=== PATIENT | male | born 1940 | race African-American/Black ===

== ENCOUNTER 2017-10-22 13:53 | Inpatient (IN) | payer MEDICARE ==
[~2017-10-22 13:53] MED LIST: Heparin 1,000 UNITS/ML VIAL ONE
--- NOTE | 2017-10-22 14:45 | RAD ---
RIGHT HIP TWO VIEWS: HISTORY: A 77-year-old male with a history of right hip pain following an injury from trauma. FINDINGS: Very markedly comminuted intertrochanteric and subtrochanteric fracture of the right hip with foresho rtening and some varus deformity. IMPRESSION: Markedly comminuted intertrochanteric and subtrochanteric fracture of the right femur with foreshorte jeancarlos and varus deformity. POS: OFF
--- NOTE | 2017-10-22 14:46 | RAD ---
AP PELVIS ONE VIEW: HISTORY: A 77-year-old male with a history of right hip pain following an injury from trauma. FINDINGS: Comminuted intertrochanteric and subtrochanteric right femoral fracture with foreshortening. Bone de mineralization. Bilateral hip joint arthrosis. Prominent arteriovascular calcifications. IMPRESSION: Comminuted proximal femoral fracture. POS: OFF
--- NOTE | 2017-10-22 14:51 | RAD ---
CHEST ONE VIEW: HISTORY: A 77-year-old male for preoperative evaluation for right hip fracture repair. FINDINGS: Irregular linear and interstitial parenchymal changes in the inferolateral lungs bilaterally, having a chronic appearance. Heart size is within normal limits. Atherosclerosis of the aorta. No conflue nt pneumonia, overt edema, or pleural effusion. IMPRESSION: 1. Bilateral linear and interstitial parenchymal changes in the inferolateral aspect of both lungs, having more of a chronic appearance. 2. Minimal asymmetric acute interstitial pneumonitis could have a similar appearance, but this is fa vored to be chronic. POS: OFF
[2017-10-22 15:00] LABS: #Eosinphils 0.1 thou/uL (0.0-0.7); #Lymphocytes 0.7 thou/uL (1.20-3.40); #Monocytes 0.4 thou/uL (0.11-0.59); #Neutrophils 5.7 thou/uL (1.40-6.50); %Basophils 0.1 % (0.0-1.0); %Eosinophils 1.5 % (0.0-10.0); %Lymphocytes 10.2 % (21.0-51.0); %Monocytes 5.8 % (0.0-10.0); %Neutrophils 82.3 % (42.0-75.0); Hemoglobin 9.5 g/dL (14.0-18.0); Mean Corpuscular HGB CONC 30.9 g/dL (32.0-36.0); Mean Corpuscular Hemoglobin 27.4 pg (27.0-31.0); Mean Corpuscular Volume 88.7 fl (80.0-94.0); Mean Platelet Volume 6.3 fL (7.4-10.4); Platelet Count 139 thou/uL (130-400); RBC Distribution Width 17.7 % (11.5-14.5); Red Blood Cell (RBC) Count 3.47 mill/uL (4.70-6.10)
[2017-10-22 15:05] LABS: INR-International Normal Ratio 1.1; PTT 32.2 SEC (22.9-36.1); Prothrombin Time 14.4 SEC (12.0-14.7)
[2017-10-22] MEDS ORDERED: Morphine 4 MG/ML VIAL ONE (15:07)
[2017-10-22 15:18] LABS: ALT (SGPT) 9 U/L (8-55); AST (SGOT) 11 U/L (5-34); Albumin 3.3 g/dL (3.4-4.8); Alkaline Phosphatase 62 U/L (40-150); Anion Gap 17 mmol/L (10-20); BUN (Urea Nitrogen) 89 mg/dL (8.4-25.7); Bilirubin, Total 0.5 mg/dL (0.2-1.2); Calc. Creatinine Clearance 0 mL/min (70-130); Calcium 8.3 mg/dL (7.8-10.44); Carbon Dioxide 20 mmol/L (23-31); Chloride 102 mmol/L (98-107); Estimated GFR-MDRD 5; Globulin 2.9 g/dL (2.4-3.5); Glucose 129 mg/dL (83-110); Protein, Total 6.2 g/dL (5.8-8.1); Sodium 133 mmol/L (136-145)
[2017-10-22] MEDS ORDERED: Ondansetron HCl/PF 4 MG/2 ML Vial ONE (15:51)
[2017-10-22] MEDS ORDERED: Acetaminophen 325 MG TAB ONE (17:32)
--- NOTE | 2017-10-22 17:47 | HP ---
DATE OF ADMISSION: 10/22/2017 REQUESTING PHYSICIAN: Dr. Jonatan Mariano, emergency department. ADMITTING PHYSICIAN: Dr. Markel Aponte. CONSULTING PHYSICIAN: Dr. Tilley, Nephrology; Dr. Mccullough, Cardiology; Dr. Dimas , Orthopedics. REASON FOR HOSPITALIZATION: Ground level fall with right hip pain. HISTORY OF PRESENT ILLNESS: Mr. Pryor is a 77-year-old male who was in his usual state of health when he was ambulatory with the assistance of his granddaughters today. He apparently was walking to the restroom when he lost his footing and tripped and fell to the ground on his right hip. He was transported to the emergency department where he was identified to have a right comminuted intertrochanteric and subtrochanteric fracture. He remained stable in the ER. He reported that pain was exacerbated by movement. Pain was alleviated by nothing. He was given morphine, which caused him to subsequently vomit. He reported that every time he has morphine, he vomits immediately afterwards. This was alleviated with the administration of Zofran. He apparently was in the hospital and left intact since approximately 3 weeks ago where he was in the critical care unit after a STEMI. He also was noted to have a newly diagnosed second degree heart block. He has received no medical care in this area. He typically seeks treatment in [facility] or in [place]. Trauma services has been consulted for admission and management. PAST MEDICAL HISTORY: 1. Cardiac history including STEMI and second degree heart block, CHF. 2. Diabetes type 2 on insulin. 3. Hyperlipidemia. 4. High cholesterol. 5. Hypertension. 6. End-stage renal disease, currently not on dialysis, patient has refused dialysis to this point. PAST SURGICAL HISTORY: Left eye surgery for detached retina, bilateral rotator cuff surgery. SOCIAL HISTORY: The patient denies tobacco, alcohol, or drug use. FAMILY HISTORY: Noncontributory. CURRENT MEDICATIONS: 1. Plavix 75 mg once daily. 2. Aspirin 81 mg once daily. 3. Doxazosin 4 mg once daily. 4. Furosemide 40 mg twice daily. 5. Amlodipine 10 mg once daily. 6. Tramadol 50 mg twice daily. 7. Tylenol 325 mg twice daily. 8. Lantus. 9. Coreg 3.125 mg twice daily. 10. Atorvastatin 40 mg once daily. 11. Hydralazine 100 mg 3 times daily. 12. Sodium bicarbonate 650 mg once daily. ALLERGIES: No known drug allergies. LABORATORY DATA: Hematology: WBC 7.0, RBC 3.47, hemoglobin 9.5, hematocrit 30.7, platelets 139. Coagulation studies: PT 14.4, INR 1.1. Chemistry: Sodium 133, potassium 6.0, chloride 102, carbon dioxide 20, BUN 89, creatinine 10.72, glucose 129. REVIEW OF SYSTEMS: Constitutional: The patient denies recent fever, chills, weight loss. HEENT: Denies vision changes, otorrhea or rhinorrhea. Pulmonary: Denies shortness of breath, wheezing, or cough. Cardiovascular: Denies chest pain. Denies syncope, denies palpitations. Gastrointestinal: Denies abdominal pain, nausea, vomiting, diarrhea or constipation. Genitourinary: Denies problems. He reports that he is still able to produce urine. Musculoskeletal: Reports ground level fall today. Right hip pain with movement. Skin: Denies changes. Denies trauma, denies rashes. Neurologic: Denies headache. Denies focal weakness. PHYSICAL EXAMINATION: VITAL SIGNS: Blood pressure 165/71, pulse 59, respirations 14, O2 sat 97% on room air. Pain 5/10. CONSTITUTIONAL: Elderly male lying in bed in no acute distress, nontoxic appearing. HEENT: Atraumatic, normocephalic. NECK: No posterior neck tenderness. Trachea midline. RESPIRATORY: Bilateral breath sounds clear. No wheezing, chest movement symmetrical. No pain with palpation. CARDIOVASCULAR: Bradycardic at 59. Heart sounds normal. 2+ pitting edema BLE. ABDOMEN: Soft, nontender, nondistended. PELVIS: Right hip tenderness to palpation or movement. EXTREMITIES: Neurovascular intact. Moves all extremities. Right lower extremity, externally rotated. SKIN: Normal color and temperature. PSYCHIATRIC: Normal mood and affect. NEUROLOGIC: GCS 15. Alert and oriented x3. EKG: Second degree heart block. ASSESSMENT: 1. Status post ground level fall. 2. Right intertrochanteric hip fracture. 3. History of end-stage renal disease, currently not on dialysis. 4. Recent history of ST-elevation myocardial infarction and recent diagnosis of second degree heart block. 5. Acute traumatic pain. 6. Electrolyte imbalance. PLAN: 1. Admit to hospital, trauma services. 2. Consult Dr. Dimas who plans to take patient to OR when cleared medically. 3. Consult made with Dr. Tilley at patient's request for consult management of end -stage renal disease. 4. Consult Dr. Mccullough, Cardiology. We will admit patient to telemetry. 5. Diabetic renal diet, n.p.o. after midnight. Plan for surgery tomorrow if cleared. 6. No chemical deep venous thrombosis prophylaxis until cleared by Orthopedic Surgery and consulting physicians. 7. We will not give any additional doses of IV morphine as the patient has shown intolerance to it. He reports he vomits every time he received morphine. We will manage the pain with scheduled tramadol and Tylenol. The patient was reviewed with Dr. Aponte at the time of this dictation. [facility]
--- NOTE | 2017-10-22 18:29 | CON ---
DATE OF CONSULTATION: 10/22/2017 RENAL MEDICINE HISTORY OF PRESENT ILLNESS: Mr. Pryor is a 77-year-old black male with history of chronic renal failu re secondary to presumed diabetic nephropathy and was brought to the ER due to a fall. He was found to have a right hip fracture. However, his potassium was noted to be elevated and creatinine was not ed to be significantly abnormal. We were consulted for initiation resulted for his chronic renal shasharoxi alvarado. I had a long discussion with the daughter. This patient is a patient of Dr. Markel Berman in on. He has been declining dialysis for the last several months. His creatinine has been averaging a bout 10 mg percent. I did explain to the daughter due to the mild hyperkalemia he cannot undergo ramila debra. The daughter and his father decided to proceed with the dialysis. We will do an emergent dialysis to night, so that the patient can proceed with the planned surgery tomorrow on Wednesday. I did explain to the patient and his daughter that he can discontinue the dialysis if he wants to having to bear in m ind that he could succumb to his chronic renal failure if he stops dialysis. REVIEW OF SYSTEMS: Positive for right hip joint pain, no nausea, no syncopal episode, no chest pain or shortness of breath, no diarrhea, no constipation. Appetite decreased, energy level is decreased. No diplopia, no sore throat, no headache, no fever or chills. HOME MEDICATIONS: Includes the following; Plavix 75 mg once a day, aspirin 81 mg tab once a day, dox azosin 4 mg tab daily, furosemide 40 mg b.i.d., amlodipine 10 mg tablet day, tramadol 50 mg b.i.d., T ylenol p.r.n., Lantus 5-10 units subcu once a day, Coreg 3.125 mg b.i.d., hydralazine 100 mg t.i.d., and sodium bicarbonate 650 mg once a day. PAST MEDICAL HISTORY: Type 2 diabetes mellitus, chronic renal failure from diabetic nephropathy, hyp ertension, coronary artery disease, status post congestive heart failure. PAST SURGICAL HISTORY: Status post bilateral rotator cuff surgery. SOCIAL HISTORY: The patient is , lives in [place]. Eight children with one . 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 Education, high school. Smoked for 20 years, 1 pack a day. Education high [employer]. No IV drug abuse. ALLERGIES: None. TRAUMA: Recently status post fall with right hip fracture. IMMUNIZATIONS: Unknown. HOSPITALIZATIONS: Please see past medical history. FAMILY HISTORY: No family history of ESRD. PHYSICAL EXAMINATION: VITAL SIGNS: Blood pressure is 165/71, heart rate 70, respiratory rate 12. GENERAL: Awake, but somewhat sleepy, not in overt distress. SKIN: Adequate turgor. HEENT: He has slightly pale conjunctivae, anicteric sclerae. NECK: No neck mass, no carotid bruits, no JVD. CHEST: No deformities. LUNGS: Clear breath sounds, no wheezing, no crackles. HEART: Normal sinus rhythm. No murmur, no gallops, no rubs. ABDOMEN: Globular, soft, nontender, no masses. EXTREMITIES: No edema, no deformities. Limited range of motion of the right hip joint. NEUROLOGIC: Awake and oriented in 3 spheres. Moving all extremities except for the right hip area. No tremors. No asterixis. LABORATORY DATA: Laboratories of 10/22/2017; sodium 133, potassium 6, chloride 102, carbon dioxide 2 0, BUN 89, creatinine 10.7, glucose 129, calcium 8.3, AST 11, ALT 9, albumin 3.3, globulin 2.9, white count 7, hemoglobin 9.5. IMAGING DATA: On 10/22/2017, chest x-ray shows bilateral linear interstitial parenchymal changes. On 10/22/2017, x-ray of the right hip joint showed markedly comminuted intertrochanteric and subseque nt subtrochanteric fracture of the right femur with varus deformity. ASSESSMENT AND PLAN: 1. Right hip fracture/right femoral fracture - surgery following. Patient is planned for surgery in a.m. or on Wednesday. Surgery is requesting to correct metabolic abnormality. 2. Chronic renal failure - patient will need dialysis prior to the surgery. I have requested surger y to place a temporary left femoral dialysis catheter, so I can dialyze him for 2 hours tonight. Hop efully, electrolyte abnormality will be much improved in a.m. Patient and the daughter have agreed for dialysis.
--- NOTE | 2017-10-22 19:14 | CON ---
DATE OF CONSULTATION: 10/22/2017 REASON FOR CONSULTATION: Preoperative evaluation. HISTORY OF PRESENT ILLNESS: Mr. Pryor is a very pleasant 77-year-old -[place] gentleman who c omes to the hospital for a fall. He actually lives in [place] and came to [facility] with his daughter who is a registered nurse in [employer] [facility] [employer] [facility] [employer] as she was giving a class to nursing stud ents here. He was walking to the bathroom with his granddaughters and he lost his footing and fell d own, breaking his hip. He has right hip pain. He was found to have a broken hip that required surge ry, so he is scheduled to have this done tomorrow. He has a history of stage 5 chronic kidney diseas e with a creatinine ranging anywhere from 7-12. He has refused hemodialysis in the past as he contin ues to urinate. He has had at least two episodes where he came into the hospital with shortness of b reath and had mildly elevated troponins. He never had a heart catheterization secondary to him not w anting to have hemodialysis after an IV contrast load. The daughter is very knowledgeable about ever ything that has happened to him. She tells me that during that time, an echocardiogram was done and she remembers being told that his EF was 50%. She also remembers being told that it was a small hear t attack and may have even been just related to the kidney disease. She also remembers being told th at this was the second time it happened. His last admission was in September, this all happened in [place], [place] and the reason he is here in [place] is because he was told after discharge that he could no longer live alone, so he had to either go to a intermediate or can live with family members, so [facility] members brought him over to the [place] area. Currently, he denies any chest pain, tightness, pre ssure, no shortness of breath. PAST MEDICAL HISTORY: 1. History of non-ST elevation myocardial infarction. 2. Second degree AV block, Wenckebach type per daughter's report. 3. Type 2 diabetes. 4. Hyperlipidemia. 5. Hypertension. 6. Chronic kidney disease stage 5. PAST SURGICAL HISTORY: 1. Left eye surgery for detached retina. 2. Bilateral rotator cuff surgery. SOCIAL HISTORY: No alcohol, tobacco or drugs. FAMILY HISTORY: Noncontributory. OUTPATIENT MEDICATIONS: Include, 1. Plavix 75 mg a day. 2. Aspirin 81 a day. 3. Doxazosin 4 mg a day. 4. Furosemide 40 mg twice a day. 5. Amlodipine 10 mg a day. 6. Tramadol 50 mg twice a day. 7. Tylenol p.r.n. pain. 8. Lantus p.r.n. 9. Coreg 3.125 mg b.i.d. This was decreased from 25, because of the Wenckebach. 10. Atorvastatin 40 mg a day. 12. Hydralazine 100 mg 3 times a day. 13. Sodium bicarbonate 650 mg a day. ALLERGIES: No known drug allergies. REVIEW OF SYSTEMS: A 10 point review of systems was done and is all negative unless stated in the hi story of present illness. PHYSICAL EXAMINATION: VITAL SIGNS: Blood pressure 156/69, pulse 60, respiratory rate 16, satting 99% on room air, temperat ure 98.6. GENERAL: Awake, alert, oriented x3, in no distress. He is sitting at about 70-90 degrees. He state s that not because of his breathing, but because it is more comfortable that way for his hip. HEENT: Normocephalic, atraumatic. NECK: Supple. LUNGS: Clear to auscultation. CARDIOVASCULAR: S1, S2, no S3 or S4, no murmurs or rubs. ABDOMEN: Soft, positive bowel sounds. EXTREMITIES: No edema. SKIN: Warm and dry. LABORATORY WORK: Reviewed. White count of 7, hemoglobin 9.5, hematocrit 30, platelet count 139. Co ags were unremarkable. Chemistry with sodium 133, potassium was 6.0, carbon dioxide of 20, BUN 89, c reatinine 10.7, GFR 5, glucose of 129, albumin of 3.3. X-RAY FINDINGS: Chest x-ray showed bilateral linear interstitial parenchymal changes in the inferola teral aspect of both lungs, chronic appearance, asymmetric interstitial pneumonitis could have simila r appearance. Hip x-rays and pelvic x-rays show right comminuted proximal femoral fracture. There is prominent art erial vascular calcifications as well and bilateral hip joint arthrosis. EKG was reviewed. Telemetry strips were reviewed. ASSESSMENT: 1. Preoperative evaluation. 2. Hip fracture. 3. Recent non-ST elevation myocardial infarction. 4. Chronic kidney disease stage 5, end-stage now. 5. Hyperkalemia. PLAN: 1. We will get an echocardiogram this evening to make sure that his LV function remains normal as pe r daughter's report, who is an RN from [employer] in [place]. He would be high risk for an intermediate risk procedure given the fact that if he were to not have this surgery, he would be bedridden. I think we will have to proceed with any further cardiac testing except for the echoca rdiogram as he would risk being in a bedridden state for the rest of the days and this could be his d emise. Him and his daughter understand and verbalize understanding of the current situation and agre ed to proceed. If he were to have complications after surgery that required him to go to the cathete rization lab, he would be amenable as he actually has already agreed to start hemodialysis currently as his creatinine is so high and his potassium is high as well. May discontinue Plavix for now and w ill need to be restarted once safe from the surgical perspective. 2. We will trend troponins before and after to make sure that we have a trend, I am sure they are ch ronically elevated with his level of creatinine and having had recent non-ST elevation myocardial inf arction. Thank you for letting us participate in the care of your patient. We will continue to follow.
--- NOTE | 2017-10-22 20:00 | CON ---
DATE OF CONSULTATION: 10/22/2017 REQUESTING PHYSICIAN: Dr. Markel Aponte. PRINCIPAL COMPLAINT: Right intertrochanteric femur fracture. HISTORY OF PRESENT ILLNESS: Mr. Pryor is a pleasant 77-year-old gentleman who was [facility] room with his daughter at bedside. His daughter reports that earlier today, he was walking to the restroom at her home when he lost his footing, tripped and fell and injured his right hip. Upon arrival at [facility], he was found to have a sole complaint of right groin and lateral thi gh pain. X-rays were obtained that demonstrated an intertrochanteric femur fracture with extension d own below the level of the lesser trochanter. With this finding, orthopedic consultation was request ed. 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 The patient is now admitted to the Trauma Service with Cardiology and Nephrology consultation is requested for preoperative clearance. PAST MEDICAL HISTORY: Remarkable for heart block and a history of congestive heart failure, diabetes type 2, hyperlipidemia, hypertension, and end-stage renal failure, currently refusing dialysis. PAST SURGICAL HISTORY: Includes left detached retina as well as bilateral rotator cuff. SOCIAL HISTORY: Denies tobacco, alcohol, or drug use. FAMILY HISTORY: Noncontributory. REVIEW OF SYSTEMS: Denies recent fevers, chills or sweats. Denies current chest pain or shortness o f breath. Denies numbness or tingling in his lower extremities, although while examined, he reports some mild tingling in both the right lower and right upper extremity; however, gross neurologic exam is intact. MEDICATIONS: Include Plavix, aspirin, furosemide, amlodipine, tramadol, Lantus, Coreg, atorvastatin, hydralazine. ALLERGIES: None known. PHYSICAL EXAMINATION: VITAL SIGNS: The patient has a temperature of 98.6 degrees Fahrenheit, heart rate of 47, respiratory rate of 15 and blood pressure of 156/69. HEENT: Atraumatic. HEART: Shows an irregularly irregular rhythm with no obvious murmur. LUNGS: Clear to auscultation bilaterally. Chest wall is nontender to palpation. ABDOMEN: Flat and nontender with normal bowel sounds. PELVIS: Stable to compression, although he does have right hip pain with compression of the pelvis. EXTREMITIES: Remarkable for bilateral upper extremities that are atraumatic with grossly intact sens ation over the radial, median, and ulnar distributions of both left and right upper extremities. Lef t lower extremity is also atraumatic. Right lower extremity is remarkable for shortening and externa l rotation at the hip, the knee, ankle and foot appear atraumatic. He does have protective sensation over the dorsal and plantar surfaces of the foot and is able to wiggle his toes. There is no pain w ith passive stretch. X-RAYS: AP pelvis and AP lateral x-rays of the right hip are remarkable for an intertrochanteric fem ur fracture with extension to just below the level of the lesser trochanter. LABORATORY: He is found to have a white count of 7, hematocrit of 30.7 and 139,000 platelets. His c hemistry is remarkable for sodium of 133 and potassium of 6.0. He is found to have a creatinine of 1 0.72. His INR is 1.1. ASSESSMENT: A 77-year-old gentleman status post ground level fall sustaining an intertrochanteric fe mur fracture. PLAN: At this time, the patient will be admitted to trauma services. We are obtaining both Cardiolo gy and Nephrology consultation to try and normalize his electrolytes and also Cardiology consultation for preoperative clearance. As soon as the patient is felt to be optimized for surgery, we will pro ceed with an open reduction internal fixation of his right proximal femur using TFN device. Today, I discussed with daughter the risks and benefits of surgery. Risks include but are not limited to ble eding, infection, nerve injury, DVT, PE, loss of limb or life. We have also discussed the risks of n ot proceeding with surgery and prolonged bed rest. At this time, I believe everyone is in agreement to proceed with surgery as soon as we get clearance from our medical consultants.
--- NOTE | 2017-10-22 20:35 | OP ---
PREOPERATIVE DIAGNOSIS: Renal insufficiency, need for dialysis preop. SURGEON: Markel Aponte M.D. PROCEDURE PERFORMED: Dialysis catheter placement. INDICATIONS: The patient is a 77-year-old male, who sustained a right hip fracture after a ground le [place] fall, need surgical treatment, but his creatinine is 10 and his BUN is 90. Needs dialysis prior to anesthesia. FINDINGS: Good placement of left femoral vein. PROCEDURE IN DETAIL: After informed consent was obtained, his left groin was prepped and draped in u sual fashion. Local anesthesia infiltrated subcutaneously and deep with 1% lidocaine with epinephrin e. An introducer needle was inserted with good backflow of venous blood. J-wire threaded easily. T he skin was incised with an 11 blade. A series of dilators used to dilate the skin and subcu. The d ialysis catheter was then inserted over the wire. The wire was removed. Each of the ports aspirated and flushed with saline, sutured in place with interrupted 3-0 silk suture. Sterile bandage applied . The patient tolerated the procedure well and he will proceed to dialysis.
[2017-10-22] MEDS ORDERED: Dextrose 50% Abboject 50 ML SYRINGE SLOW IVP PRN (21:51)
[2017-10-22] MEDS ORDERED: Dextrose 5% in Water 1,000 ML IV PRN (21:51)
[2017-10-22] MEDS ORDERED: Famotidine/PF 20 mg/2ml Vial SLOW IVP SCH (22:00)
[2017-10-22] MEDS: traMADol HCl 50 MG TAB PO PRN (22:25)
[2017-10-22] MEDS ORDERED: hydrALAZINE 25 MG TAB PO SCH ×2 (23:30)
[2017-10-22] MEDS ORDERED: Amlodipine 10 MG TAB PO SCH (23:30)
[2017-10-22] MEDS ORDERED: Carvedilol 3.125 MG TAB PO SCH (23:30)
[2017-10-23 00:43] LABS: HBSAB Concentration 0.12 mIU/mL; HBSAg Index 0.21 S/CO (0-0.99); Hep B Core Total Ab Non-Reactive (NonReactive); Hep B Surf AB Non-Reactive (NonReactive); Hep B Surf Ag Non-Reactive S/CO (NonReactive); Hep C IgG Ab Non-Reactive (NonReactive); Hep C Index 0.11 S/CO (0-0.79)
--- NOTE | 2017-10-23 00:45 | HP ---
CHIEF COMPLAINT: Fall from standing and right hip pain. HISTORY: Patient is a 77-year-old male with multiple medical problems, who lost balance and had a gr ound level fall, striking his right hip with angulation of his upper leg and pain. PAST MEDICAL HISTORY: Significant for chronic renal insufficiency. Up until this point, he has refu sed dialysis, hypertension, diabetes. He has had 2 myocardial infarctions. PAST SURGICAL HISTORY: He has had rotator cuff surgery, bilateral. He had repair of a left detached retina. ALLERGIES: No known drug allergies. MEDICATIONS: Plavix, aspirin, hydralazine, , doxazosin, Epogen, atorvastatin. SOCIAL HISTORY: Lives alone. No tobacco or alcohol. PHYSICAL EXAMINATION: GENERAL: He is awake, alert, in no apparent distress. HEENT: Unremarkable. LUNGS: Clear. HEART: Regular rate and rhythm. ABDOMEN: Soft, nontender. He has good pulses. RECTAL EXAM: He has a deformed right upper thigh with some angulation and external rotation. X-rays show markedly comminuted intertrochanteric and subtrochanteric fracture of the right femur wit h shortening and varus deformity. LABORATORY DATA: White count 7, H&H 9.5 and 30, platelet count 139. Electrolytes showed creatinine of 10.7. His BUN is 89. His PT is 14, PTT of 32, INR 1.1. ASSESSMENT: Chronic renal insufficiency with acute exacerbation and a comminuted right hip fracture. PLAN: He needs urgent dialysis, so he can undergo anesthesia. I have been asked to put a femoral di alysis catheter in.
[2017-10-23] MEDS: Acetaminophen 500 MG TAB PO PRN ×3 (00:53→14:20)
[2017-10-23] MEDS ORDERED: Morphine 2 MG/ML SYRINGE SLOW IVP SCH (02:30)
[2017-10-23] MEDS: Ondansetron HCl/PF 4 MG/2 ML Vial IVP PRN ×3 (02:38→22:16)
[2017-10-23 05:45] LABS: #Lymphocytes 0.5 thou/uL (1.20-3.40); #Monocytes 0.4 thou/uL (0.11-0.59); #Neutrophils 3.7 thou/uL (1.40-6.50); %Basophils 0.3 % (0.0-1.0); %Lymphocytes 9.8 % (21.0-51.0); %Monocytes 8.2 % (0.0-10.0); %Neutrophils 81.7 % (42.0-75.0); Hemoglobin 9.3 g/dL (14.0-18.0); Mean Corpuscular Volume 90.4 fl (80.0-94.0); Mean Platelet Volume 11.2 fL (7.4-10.4); Platelet Count 121 thou/uL (130-400); RBC Distribution Width 18.2 % (11.5-14.5); Red Blood Cell (RBC) Count 3.31 mill/uL (4.70-6.10); White Blood Cell (WBC) Count 4.6 thou/uL (4.8-10.8)
[2017-10-23 05:56] LABS: Bilirubin Negative (Negative); Blood, Urine Trace (Negative); Clarity CLEAR (Clear); Glucose, Urine (Dipstick) 250 mg/dL (Negative); Leukocyte Negative (Negative); Nitrite Negative (Negative); Protein, Urine (Dipstick) 100 mg/dL (Neg-Trace); Specific Gravity, Urine 1.012 (1.002-1.036); pH, Urine 6.5 (5.0-9.0)
[2017-10-23 05:57] LABS: Bacteria/HPF None Seen HPF (None Seen); Hyaline Casts/LPF 0-3 HYALINE CAST LPF (0-3 Hyaline); Squamous Epithelial None Seen HPF (0-3); WBC/HPF None Seen HPF (0-3)
[2017-10-23 06:33] LABS: Anion Gap 17 mmol/L (10-20); BUN (Urea Nitrogen) 64 mg/dL (8.4-25.7); Calc. Creatinine Clearance 9 mL/min (70-130); Calcium 8.5 mg/dL (7.8-10.44); Carbon Dioxide 20 mmol/L (23-31); Chloride 100 mmol/L (98-107); Estimated GFR-MDRD 8; Glucose 139 mg/dL (83-110); Potassium 4.8 mmol/L (3.5-5.1); Sodium 132 mmol/L (136-145)
[2017-10-23] MEDS ORDERED: CEFAZOLIN/Water 2 GM/20 ML SYRINGE SLOW IVP SCH (06:45)
[2017-10-23] MEDS: traMADol HCl 50 MG TAB PO PRN ×2 (08:25→14:20)
--- NOTE | 2017-10-23 09:25 | PRG ---
DATE OF SERVICE: 10/23/2017 ATTENDING PHYSICIAN: Dr. Markel Aponte. SUBJECTIVE: Mr. Pryor is a 77-year-old male who was admitted last p.m. with ground level fall and right hip fracture. He has chronic kidney disease with creatinine around 10 last night. He also had a recent history of new onset heart block. He was admitted by Trauma Surgery. Dr. Tilley, Nephrology was consulted. Dialysis catheter was placed in the left groin and he underwent dialysis last p.m. He is also undergoing dialysis again this a.m. Dr. Mccullough has also seen the patient. He has ordered an echocardiogram. He also reports that patient has high risk for intermediate procedure. Mr. Pryor is seen this morning in the dialysis area. OBJECTIVE: VITAL SIGNS: Temperature 99.5, pulse 106, respirations 18, blood pressure 180/ 94. GENERAL: Elderly male seen sitting up in bed in no acute distress, currently undergoing dialysis. HEENT: Atraumatic, normocephalic. CARDIOVASCULAR: Sinus tachycardia. Heart sounds normal. PULMONARY: Bilateral breath sounds clear to auscultation. ABDOMEN: Soft, nontender, nondistended. No abdominal pain. EXTREMITIES: Right hip pain with movement of the right lower extremity. Otherwise, extremities normal. 2+ pitting edema to bilateral lower extremities. Cap refill brisk. Neurovascularly intact. NEUROLOGIC: GCS 15. Awake, alert, oriented x3. LABORATORY DATA: Hematology: WBC 4.6, RBC 3.31, hemoglobin 9.3, hematocrit 29.9, platelets 121. Chemistry: Sodium 132, potassium 4.8 down from 6.0 yesterday, chloride 100, carbon dioxide 20, BUN 64 down from 89 yesterday, creatinine 7.73 down from 10.72 yesterday, glucose 139. ASSESSMENT: 1. Status post ground level fall. 2. Right intertrochanteric hip fracture. 3. Chronic kidney disease, now requiring dialysis. 4. Recent non-ST elevation myocardial infarction. 5. Hyperkalemia, corrected by initial dialysis. PLAN: 1. Appreciate Cardiology and Nephrology recommendations. 2. Antihypertensive medications per Dr. Tilley's orders. 3. IV antibiotics per Orthopedic Surgery. 4. Continue scheduled dialysis this morning. 5. Dr. Dimas to take to OR this afternoon. 6. Morphine added for pain last night. Zofran was given with morphine. Patient did not have any nausea or vomiting. 7. PT/OT with orthopedic restrictions after surgery. The patient was reviewed with Dr. Aponte, attending surgeon, who agrees with plan. ULISSESD
--- NOTE | 2017-10-23 10:31 | PRG ---
DATE OF SERVICE: 10/23/2017 SUBJECTIVE: Mr. Pryor is a 77-year-old black male with chronic renal failure and admitted for right h ip fracture. He was found to have elevated creatinine of more than 10. He was also mildly hyperkale jose. He underwent emergent hemodialysis after a left femoral dialysis catheter was placed. In [facility], he is currently being dialyzed today for at least 2 hours. I am at the bedside supervising his dialysis. He is tolerating said treatment. No other complaints, no chest pain or shortness of breath. He does have a right hip joint pain. PHYSICAL EXAMINATION: VITAL SIGNS: Blood pressure is 180/94, heart rate 106, respiratory rate 18, temperature 99.5, pulse ox 97%. GENERAL: Awake, alert, comfortable, not in distress. SKIN: Adequate turgor. HEENT: He has slightly pale conjunctivae, anicteric sclerae. NECK: No neck mass, no carotid bruits, no JVD. CHEST: No deformities. LUNGS: Decreased breath sounds. HEART: Normal sinus rhythm. No murmur, no gallops or rubs. ABDOMEN: Globular, soft, nontender. No masses. EXTREMITIES: Trace edema. MEDICATIONS: Of 10/23/2017 was reviewed. LABORATORY DATA: Of 10/23/2017, white count 4.6, hemoglobin 9.3. Sodium 132, potassium 4.8, chlorid e 100, carbon dioxide 20, BUN 64, creatinine 7.73, glucose 139. Hepatitis B surface antigen was nega tive. Urinalysis showed protein of 100, RBC 4-6, WBC none seen. ASSESSMENT AND PLAN: 1. Chronic renal failure - most likely from diabetic nephropathy in view of the longstanding history of diabetes and proteinuria. Undergoing hemodialysis. My plan is to do another 3-hour hemodialysis in a.m. 2. Mild hyperkalemia, resolved with dialysis. 3. Right hip fracture - patient for right hip surgery today. 4. Hypertension. Blood pressure medications have been initiated back with this patient. Overall, agree with current management. Recheck base met and CBC in a.m.
[2017-10-23] MEDS: hydrALAZINE 25 MG TAB PO SCH ×3 (11:25→21:06)
[2017-10-23] MEDS: Carvedilol 3.125 MG TAB PO SCH ×2 (11:36→21:05)
[2017-10-23] MEDS: Morphine 2 MG/ML SYRINGE SLOW IVP PRN ×2 (16:14→22:16)
[2017-10-23] MEDS ORDERED: Heparin 10,000 UNITS/ 10 ML VIAL ONE (17:30)
--- NOTE | 2017-10-23 19:06 | PDOC.CTH ---
Cardiology Progress Note - Subjective No new issues or complaints. He has tolerated HD well. - Objective Vital Signs Temp Pulse Resp BP BP Pulse Ox 10/23/17 15:40 81 162/85 H 10/23/17 15:35 100.1 F H 81 18 162/85 H 94 L 10/23/17 11:30 99.5 F 90 18 172/81 H 100 10/23/17 11:25 106 H 10/23/17 08:32 106 H 18 180/94 H Weight 170 lb 1.6 oz 10/22/17 10/23/17 10/24/17 06:59 06:59 06:59 Intake Total 240 Output Total 550 Balance -310 - Physical Examination General/Neuro: alert & oriented x3, NAD Neck: no JVD present Lungs: CTA, unlabored respirations Heart: RRR Abdomen: NT/ND Extremities: + edema B (trace) - Telemetry Telemetry Rhythm: NSR - Labs Result Diagrams: 10/23/17 04:42 10/23/17 06:03 - Assessment/Plan 1. Hip fracture. 2. Normal LV function with apical hypokibnesis. 3. Hx of NSTEMI's in the recent past treated medically. 4. CKD stage 5 now ESRD, started HD. PLAN: - LV function is normal and he is asymptomatic from the cardiac perspective. May proceed with surgery as planned with the understood risks caveats.
[2017-10-23] MEDS: Amlodipine 10 MG TAB PO SCH (21:06)
[2017-10-23] MEDS: Insulin Regular 300 UNITS/3 ML VIAL SC PRN (21:07)
[2017-10-23] MEDS: Famotidine/PF 20 mg/2ml Vial SLOW IVP SCH (21:07)
[2017-10-24] MEDS: Dextrose 5 %-0.45 % NaCl 1,000 ML IV SCH ×2 (00:45→11:29)
[2017-10-24] MEDS: traMADol HCl 50 MG TAB PO PRN ×2 (02:44→22:49)
[2017-10-24] MEDS: Acetaminophen 500 MG TAB PO PRN ×2 (02:50→22:55)
[2017-10-24] MEDS: Carvedilol 3.125 MG TAB PO SCH ×2 (05:43→21:57)
[2017-10-24] MEDS ORDERED: CEFAZOLIN/Water 2 GM/20 ML SYRINGE SLOW IVP SCH (06:00)
[2017-10-24 06:33] LABS: #Lymphocytes 0.5 thou/uL (1.20-3.40); #Monocytes 0.5 thou/uL (0.11-0.59); #Neutrophils 5.3 thou/uL (1.40-6.50); %Eosinophils 0.2 % (0.0-10.0); %Lymphocytes 7.7 % (21.0-51.0); %Monocytes 8.4 % (0.0-10.0); %Neutrophils 83.7 % (42.0-75.0); Hemoglobin 9.6 g/dL (14.0-18.0); Mean Corpuscular HGB CONC 30.9 g/dL (32.0-36.0); Mean Corpuscular Hemoglobin 27.6 pg (27.0-31.0); Mean Corpuscular Volume 89.3 fl (80.0-94.0); Mean Platelet Volume 7.7 fL (7.4-10.4); Platelet Count 108 thou/uL (130-400); RBC Distribution Width 17.2 % (11.5-14.5); Red Blood Cell (RBC) Count 3.48 mill/uL (4.70-6.10); White Blood Cell (WBC) Count 6.3 thou/uL (4.8-10.8)
[2017-10-24 06:36] LABS: Anion Gap 18 mmol/L (10-20); BUN (Urea Nitrogen) 41 mg/dL (8.4-25.7); Calc. Creatinine Clearance 11 mL/min (70-130); Calcium 8.4 mg/dL (7.8-10.44); Carbon Dioxide 23 mmol/L (23-31); Chloride 99 mmol/L (98-107); Estimated GFR-MDRD 11; Glucose 193 mg/dL (83-110); Potassium 4.6 mmol/L (3.5-5.1); Sodium 135 mmol/L (136-145)
[2017-10-24] MEDS ORDERED: CEFAZOLIN/Water 2 GM/20 ML SYRINGE ONE (07:47)
[2017-10-24] MEDS ORDERED: Fentanyl 250 MCG/5 ML VIAL ONE (08:14)
[2017-10-24] MEDS ORDERED: FLU VACC TS2017-18 (>65YR) 0.5 ML SYRINGE IM ONE (09:00)
[2017-10-24] MEDS ORDERED: Promethazine HCl 25 MG/ML VIAL IM PRN (09:26)
[2017-10-24] MEDS ORDERED: Ondansetron HCl/PF 4 MG/2 ML Vial IVP PRN (09:26)
[2017-10-24] MEDS ORDERED: Promethazine HCl 25 MG/ML VIAL SLOW IVP PRN (09:26)
[2017-10-24] MEDS ORDERED: Fentanyl 100 MCG/2 ML VIAL ONE (09:54)
[2017-10-24] MEDS: hydrALAZINE 25 MG TAB PO SCH ×4 (10:38→21:56)
[2017-10-24] MEDS ORDERED: Heparin 1,000 UNITS/ML VIAL ONE (11:11)
--- NOTE | 2017-10-24 11:46 | RAD ---
RIGHT HIP INTRAOPERATIVE FLUOROSCOPY: Date: 10/24/17 HISTORY: Right hip fracture. COMPARISON: None. FINDINGS: Intraprocedural fluoroscopy demonstrates five views. There is a dynamic nail and intramedullary nuris t raversing the proximal right hip. Alignment is near anatomic. IMPRESSION: Intraoperative fluoroscopy as above. POS: LELAND
[2017-10-24] MEDS: Insulin Regular 300 UNITS/3 ML VIAL SC PRN (12:22)
[2017-10-24] MEDS: CEFAZOLIN 1 GM, Syringe 2.5 ML in Sterile Water 7.5 ML SLOW IVP SCH ×2 (13:43→21:55)
[2017-10-24] MEDS ORDERED: CEFAZOLIN 1 GM VIAL SLOW IVP SCH (14:00)
--- NOTE | 2017-10-24 14:43 | PRG ---
DATE OF SERVICE: 10/24/2017 SERVICE: Renal Medicine. SUBJECTIVE: Mr. Pryor is a 77-year-old black male who was found to have right hip fracture and we wer e consulted for initiation of dialysis. He has been tolerating his dialysis. He underwent right hip surgery today. He is now at the room. He is awake and somewhat confused. OBJECTIVE: VITAL SIGNS: Blood pressure is 163/73 with a heart rate of 70. GENERAL: The patient is awake, but confused, not in distress. SKIN: Adequate turgor. HEENT: He has pinkish conjunctivae, anicteric sclerae. NECK: No neck mass, no carotid bruits, no JVD. CHEST: No deformities. LUNGS: Decreased breath sounds. HEART: Normal sinus rhythm. No murmur, no gallops, no rubs. ABDOMEN: Globular, soft, nontender, no masses. EXTREMITIES: No edema, no deformities. Limited range of motion of the right hip joint. MEDICATIONS: Of 10/24/2017 was reviewed. LABORATORY DATA: Of 10/24/2017, white count 6.2, hemoglobin 9.6. Sodium 135, potassium 4.6, chlorid e 99, carbon dioxide 23, BUN 41, creatinine 6.18, glucose 183, calcium 8.4. Hemoglobin 9.6. ASSESSMENT AND PLAN: 1. Chronic renal failure/end-stage renal disease. Hemodialysis has been initiated. Tolerating said treatment. The patient is planned for a 4-hour hemodialysis today. Fluid removal only as tolerated . 2. Right hip fracture - patient is status post hip surgery, stable. Surgery is following. 3. We will be rechecking a base met and CBC in a.m. In addition, PTH with serum phosphorus has been ordered. 4. We also start this patient on Nepro 1 can b.i.d.
[2017-10-24] MEDS ORDERED: PROPOFOL 200 MG/20 ML VIAL ONE (16:20)
[2017-10-24] MEDS ORDERED: Lidocaine 1% PF 5 ML VIAL ONE (16:20)
[2017-10-24] MEDS ORDERED: PHENYLEPHRINE-NS 100 MCG/ML 10 ML SYRINGE ONE (16:20)
[2017-10-24] MEDS ORDERED: Ondansetron HCl/PF 4 MG/2 ML Vial ONE (16:20)
--- NOTE | 2017-10-24 17:56 | PDOC.CTH ---
Cardiology Progress Note - Subjective He had surgery earlier today and did well. Denies any chest pain, tightness, pressure, SOB. - Objective Vital Signs Temp Pulse Resp BP BP Pulse Ox 10/24/17 11:42 94 198/93 H 10/24/17 11:15 98.8 F 104 H 18 163/83 H 10/24/17 10:38 94 10/24/17 07:13 99.0 F 94 16 179/82 H 95 Weight 163 lb 8 oz 10/23/17 10/24/17 10/25/17 06:59 06:59 06:59 Intake Total 240 1115 Output Total 550 2625 Balance -310 -1510 - Physical Examination General/Neuro: alert & oriented x3, NAD Neck: no JVD present Lungs: CTA, unlabored respirations Heart: RRR Abdomen: NT/ND Extremities: + edema B (none) - Telemetry Telemetry Rhythm: NSR - Labs Result Diagrams: 10/24/17 05:51 10/24/17 05:51 - Assessment/Plan 1. Hip fracture. 2. Normal LV function with apical hypokinesis. 3. Hx of NSTEMI's in the recent past treated medically. 4. CKD stage 5 now ESRD, started HD. PLAN: - He is doing well. He needs physical therapy and rehab. - Once stable and he remains on HD he will need a LHC to risk stratify his CAD. He will have this done in [place]. - Will sign off. Please call with any questions.
--- NOTE | 2017-10-24 19:09 | OP ---
DATE OF SURGERY: 10/24/2017. PREOPERATIVE DIAGNOSIS: Right subtrochanteric/intertrochanteric proximal femur fracture. POSTOPERATIVE DIAGNOSIS: Right subtrochanteric/intertrochanteric proximal femur fracture. SURGICAL PROCEDURE: Right hip TFN nail placement, long. ANESTHESIA: General. SURGEON: Benito Dimas M.D. MANAGER FRONT OFFICE: Jamila Zapata PA-C . IMPLANTS: Synthes TFN 11 x 400 mm nail with a 100 mm hip screw and a single distal cross-lock screw. COMPLICATIONS: None. DRAINS: None. SPECIMENS: None. OUTCOME: Satisfactory. INDICATIONS: The patient is a 77-year-old gentleman status post ground level fall sustaining a right intertrochanteric femur fracture with extension below the lesser trochanter. After discussion with patient and his family including risks and benefits, we decided to proceed with a TFN placement in ho pes of providing pain relief as well as improved mobility. Informed consent has been obtained. I be lieve all questions answered. DESCRIPTION OF PROCEDURE: The patient was brought to the operating room and a timeout performed, fol lowed by induction of general anesthesia. The patient was then placed supine on the fracture table w ith the well leg held in extension and padded. The injured extremity was then brought into flexion w ith traction applied at the hip and then while the leg was brought into extension and internal rotati on was applied and then this was held in gentle longitudinal traction. AP lateral C-arm images were then obtained that showed near anatomic alignment of the fracture with this reduction maneuver. Next , a sterile prep and drape was performed of the right lateral thigh. A small skin incision was then made proximal to the greater trochanter. After skin was sharply incised, dissection was carried down bluntly such that the tip of the greater trochanter could be palpated. Next, a threaded guidewire w as passed from the tip of the greater trochanter down into the intramedullary canal. This was checke d on both AP and lateral C-arm images. Next, a reamer was passed over this threaded guidewire to obt ain a starting point in the intramedullary canal. A ball-tipped guidewire was then passed down the c anal and into the distal femoral metaphysis. Measuring off of this guidewire determined that a 400 m m nail would be of appropriate length. Next, reaming was started at size of 12 and this had minimal chatter and as such was opted to proceed with an 11 x 400 mm nail. The nail was then passed without any difficulty. Once appropriately positioned, a second incision was made distal to the first and th en the jig for the hip screw was inserted and brought up against the lateral cortex of the femur. A threaded guidewire was then inserted through the lateral cortex of the femur and up into the femoral neck and head. Once appropriately positioned, it was measured and determined 100 mm length would be of appropriate length for the hip screw. Next, a reamer was passed over the guidewire. The hip scre w was then inserted and the locking mechanism with NG engaged and then backed off one half turn to al low for ability to compress the fracture. Next, using C-arm guidance, a single distal cross-lock scr ew was inserted using freehand technique through a third small incision. At completion of this, all instruments were removed from the nail and AP lateral C-arm images were taken of the femur and the re tained hardware. There was essentially anatomic alignment of the fracture. The three small incision s were irrigated with normal saline. The two proximal wounds were closed in layers with 2-0 Vicryl, followed by levi and then just a simple staple closure was used for the distal cross-lock screw si te. A Xeroform gauze and tape dressing was applied to the thigh and then patient was transferred to recovery room in stable condition. There were no complications. The patient tolerated the procedure well.
[2017-10-24] MEDS: Ondansetron HCl/PF 4 MG/2 ML Vial IVP PRN (19:15)
[2017-10-24] MEDS: Morphine 2 MG/ML SYRINGE SLOW IVP PRN (19:15)
--- NOTE | 2017-10-24 19:42 | PRG ---
DATE OF SERVICE: 10/24/2017 ATTENDING PHYSICIAN: Dr. Markel Aponte. SUBJECTIVE: Mr. Pryor is a 77-year-old male who was admitted 2 days ago, status post ground level fall with right hip fracture. He has chronic kidney disease with elevated creatinine. He was started on dialysis. Dr. Tilley, Nephrology, continues to follow. He was also seen by Dr. Mccullough, Cardiology. He was taken to the OR today by Dr. Dimas for a repair of right hip fracture. He is now seen as he is exiting the dialysis unit. He had dialysis after his surgical procedure. OBJECTIVE: VITAL SIGNS: Temperature 98.7, pulse 114, blood pressure 123/70, O2 sat 99% room air, respirations 18. GENERAL: Elderly male sitting up in bed in no acute distress. HEENT: Atraumatic, normocephalic. CARDIOVASCULAR: Heart sounds normal. Sinus tachycardia. PULMONARY: Bilateral breath sounds. Clear to auscultation. ABDOMEN: Soft, nontender, nondistended. No abdominal pain. EXTREMITIES: Moves all extremities. Cap refill brisk. Neurovascular intact. Surgical dressing in place to right hip clean, dry, and intact. NEUROLOGIC: GCS of 15, awake, alert, oriented x3. ASSESSMENT: 1. Status post ground level fall. 2. Right intertrochanteric hip fracture. 3. Status post open reduction internal fixation of right hip fracture. 4. Chronic kidney disease, now requiring dialysis. PLAN: 1. Continue to manage on telemetry floor. Further recommendations per Nephrology appreciated. 2. IV antibiotics per Orthopedic Surgery. 3. Renal diet. 4. PT, OT evaluation with orthopedic restrictions. 5. Incentive spirometer and pulmonary toilet. Patient was reviewed with Dr. Aponte who agrees with the plan. [facility]
[2017-10-24] MEDS: Famotidine/PF 20 mg/2ml Vial SLOW IVP SCH (21:56)
[2017-10-24] MEDS: Amlodipine 10 MG TAB PO SCH (21:57)
[2017-10-25] MEDS: CEFAZOLIN 1 GM, Syringe 2.5 ML in Sterile Water 7.5 ML SLOW IVP SCH (05:05)
[2017-10-25 07:45] LABS: #Lymphocytes 0.5 thou/uL (1.20-3.40); #Monocytes 0.5 thou/uL (0.11-0.59); #Neutrophils 4.6 thou/uL (1.40-6.50); %Eosinophils 0.2 % (0.0-10.0); %Lymphocytes 9.4 % (21.0-51.0); %Monocytes 8.9 % (0.0-10.0); %Neutrophils 81.5 % (42.0-75.0); Hemoglobin 7.1 g/dL (14.0-18.0); Mean Corpuscular HGB CONC 31.1 g/dL (32.0-36.0); Mean Corpuscular Hemoglobin 27.8 pg (27.0-31.0); Mean Corpuscular Volume 89.3 fl (80.0-94.0); Mean Platelet Volume 7.1 fL (7.4-10.4); Platelet Count 85 thou/uL (130-400); RBC Distribution Width 16.8 % (11.5-14.5); Red Blood Cell (RBC) Count 2.55 mill/uL (4.70-6.10); White Blood Cell (WBC) Count 5.7 thou/uL (4.8-10.8)
[2017-10-25 07:56] LABS: Anion Gap 12 mmol/L (10-20); BUN (Urea Nitrogen) 31 mg/dL (8.4-25.7); Calc. Creatinine Clearance 11 mL/min (70-130); Calcium 7.8 mg/dL (7.8-10.44); Carbon Dioxide 27 mmol/L (23-31); Chloride 100 mmol/L (98-107); Estimated GFR-MDRD 12; Glucose 203 mg/dL (83-110); Phosphorus 5.7 mg/dL (2.3-4.7); Potassium 4.4 mmol/L (3.5-5.1); Sodium 135 mmol/L (136-145)
--- NOTE | 2017-10-25 08:55 | PRG ---
DATE OF SERVICE: 10/25/2017 SERVICE: Renal Medicine. SUBJECTIVE: Mr. Pryor is a 77-year-old black male, who was admitted for right hip fracture and was al so found to have significant chronic renal failure. Hemodialysis was initiated. He has been receivi ng daily dialysis and tolerating said treatment. This morning, he has no new complaints. He is less agitated. He denies any chest pain or shortness of breath. PHYSICAL EXAMINATION: VITAL SIGNS: Blood pressure 139/66, heart rate 103, respiratory rate 16, temperature 99.1, pulse ox 98%. GENERAL EXAM: Awake, supine, comfortable, not in distress. SKIN: Adequate turgor. HEENT: He has pale conjunctivae. Anicteric sclerae. NECK: No neck mass, no carotid bruits, no JVD. CHEST: No deformities. LUNGS: Decreased breath sounds. HEART: Normal sinus rhythm. No murmur, no gallops, no rubs. ABDOMEN: Globular, soft, nontender, no masses. EXTREMITIES: No edema, no deformities. Medications of 10/25/2017 were reviewed. LABORATORY DATA: Laboratories of 10/25/2017, white count 5.7, hemoglobin 7.1, hematocrit 22.8. Sodi um 135, potassium 4.4, chloride 100, carbon dioxide 27, BUN 31, creatinine 5.55, glucose 203, calcium 7.8, phosphorus 5.7, PTH is 516. Hemoglobin 7.1. ASSESSMENT AND PLAN: 1. Anemia - initiate Epogen 7500 units subcutaneously every week, ferrous sulfate 325 mg p.o. b.i.d. 2. Hyperphosphatemia, Renvela 800 mg 1 tablet t.i.d. with meals. 3. Secondary hyperparathyroidism. Calcitriol 0.25 mcg tablet daily. 4. Chronic renal failure/end-stage renal disease - continuing 3 times a week hemodialysis. We will schedule this patient for a 4-hour hemodialysis in a.m. No heparin use due to the recent surgery. 5. Status post right hip fracture - the patient is status post right hip surgery - he had a right hi p TFN nail placement - long. He is being followed up by Surgery, doing well. We will recheck anothe r basic metabolic panel and CBC in a.m.
[2017-10-25] MEDS: Carvedilol 3.125 MG TAB PO SCH ×2 (09:06→21:12)
[2017-10-25] MEDS: Acetaminophen 500 MG TAB PO PRN (09:06)
[2017-10-25] MEDS: hydrALAZINE 25 MG TAB PO SCH ×3 (09:06→21:10)
[2017-10-25] MEDS: traMADol HCl 50 MG TAB PO PRN (09:07)
[2017-10-25] MEDS ORDERED: Epoetin (ESRD) 20,000 UNITS/ML SC SCH (10:00)
[2017-10-25] MEDS: Insulin Detemir 100 UNITS/ML 5 UNITS in Pre-Filled Syringe 1 EACH SC SCH (10:42)
[2017-10-25] MEDS: Calcitriol 0.25 MCG CAP PO SCH (10:43)
[2017-10-25] MEDS: Ferrous Sulfate 325 MG TAB PO SCH ×2 (10:43→21:12)
[2017-10-25] MEDS ORDERED: Acetaminophen 500 MG TAB PO SCH (11:45)
[2017-10-25] MEDS: Sevelamer Carbonate 800 MG TAB PO SCH ×2 (13:22→18:34)
[2017-10-25] MEDS: Insulin Regular 300 UNITS/3 ML VIAL SC PRN ×2 (13:22→18:34)
[2017-10-25] MEDS: Acetaminophen 500 MG TAB PO SCH ×2 (15:27→21:10)
[2017-10-25] MEDS: Ascorbic Acid 500 mg Chewable Tablet PO SCH (15:27)
[2017-10-25] MEDS ORDERED: Ferrous Sulfate 325 MG TAB PO SCH (17:00)
--- NOTE | 2017-10-25 18:10 | ULT ---
PRE DIALYSIS ACCESS DUPLEX EXAMINATION: Date: 10/25/17 INDICATION: ESRD FINDINGS: RIGHT UPPER EXTREMITY Right Brachial Artery: 4.9 mm Right Radial Artery: 2.7 mm Right Ulnar Artery: 1.5 mm CEPHALIC VEIN Shoulder: 2.2 mm Upper Arm: 1.5 mm Mid Arm: 1.4 mm Elbow: 2.0 mm Proximal Forearm: 1.9 mm Mid Forearm: 3.0 mm Wrist: 2.5 mm BASILIC VEIN Shoulder: 4.9 mm Upper Arm: 3.2 mm Mid Arm: 3.6 mm Elbow: 3.3 mm Proximal Forearm: 1.6 mm Mid Forearm: 1.9 mm Wrist: 1.4 mm LEFT UPPER EXTREMITY Left Brachial Artery: 5.7 mm Left Radial Artery: 3.1 mm Left Ulnar Artery: 3.0 mm CEPHALIC VEIN Shoulder: 1.7 mm Upper Arm: 1.2 mm Mid Arm: 1.4 mm Elbow: 2.9 mm Proximal Forearm: 1.4 mm Mid Forearm: 1.9 mm Wrist: 1.3 mm BASILIC VEIN Shoulder: 5.2 mm Upper Arm: 6.2 mm Mid Arm: 6.3 mm Elbow: 4.3 mm Proximal Forearm: 2.7 mm Mid Forearm: 1.8 mm Wrist: 1.9 mm IMPRESSION: Predialysis duplex exam as above. POS: DARLING
--- NOTE | 2017-10-25 19:00 | PRG ---
DATE OF SERVICE: 10/25/2017 ATTENDING PHYSICIAN: Dr. Kevin Thompson. SUBJECTIVE: Mr. Pryor is a 77-year-old male who was admitted on 10/22/2017 after suffering a ground l evel fall resulting in a right comminuted intertrochanteric and subtrochanteric hip fracture. The brenda stuart has a significant past medical history including cardiac history with recent STEMI 3 weeks ago and new second degree heart block. The patient also has a history of type 2 diabetes on insulin, hyp erlipidemia, high cholesterol, hypertension and end-stage renal disease, not on dialysis. The patien t has previously discussed dialysis with his diamond sander and has refused. The patient has agreed to temporary dialysis access which he now has in place. He has been getting dialysis and tolerating th at well. He is now postop day #1 status post-surgical fixation of his right hip. This morning on ex am, the patient is reporting adequate pain control. He vocalized no other complaints. OBJECTIVE: VITAL SIGNS: BP 139/66, pulse 103, temperature 99.1, respirations 16, O2 sat 98% on room air. GENERAL: The patient is an elderly -[place] male in no acute distress. HEENT: Normocephalic and atraumatic. RESPIRATORY: Lungs are clear to auscultation bilaterally. CARDIOVASCULAR: He is in sinus tachycardia. He has normal S1 and S2 with no murmurs, gallops or rub s. ABDOMEN: Soft, nontender, nondistended. EXTREMITIES: Patient moves all extremities. NEUROLOGIC: The patient is grossly alert and oriented this morning. He has a GCS of 15. ASSESSMENT: 1. Status post ground level fall. 2. Right intertrochanteric and subtrochanteric hip fracture status post open reduction internal fixa tion. 3. Chronic kidney disease, requiring dialysis. 4. Cardiac history including ST-elevation myocardial infarction and second degree heart block as wel l as congestive heart failure. PLAN: 1. Continue to manage patient's care on telemetry. 2. Dr. Benavides was consulted about seeing the patient for permanent dialysis access placement. 3. The patient is on a renal high-protein diet. 4. PT and OT for mobilization. 5. We will scale back patient's pain medications. Start p.o. Tylenol and tramadol for pain. 6. Restart the patient's home Gl[place]ine. 7. Case management following. The patient will likely need to discharge to rehabilitation. The patient was seen and examined along with Dr. Kevin Thompson on round who agrees with the assessmen t and plan.
[2017-10-25] MEDS: Amlodipine 10 MG TAB PO SCH (21:12)
[2017-10-25] MEDS: traMADol HCl 50 MG TAB PO SCH (21:13)
[2017-10-25] MEDS: Famotidine 20 MG TAB PO SCH (21:14)
[2017-10-26] MEDS: Acetaminophen 500 MG TAB PO SCH ×4 (03:26→21:14)
[2017-10-26 05:36] LABS: Anion Gap 15 mmol/L (10-20); BUN (Urea Nitrogen) 42 mg/dL (8.4-25.7); Calc. Creatinine Clearance 9 mL/min (70-130); Calcium 7.7 mg/dL (7.8-10.44); Carbon Dioxide 24 mmol/L (23-31); Chloride 98 mmol/L (98-107); Estimated GFR-MDRD 10; Glucose 117 mg/dL (83-110); Potassium 4.7 mmol/L (3.5-5.1); Sodium 132 mmol/L (136-145)
[2017-10-26 05:43] LABS: #Eosinphils 0.1 thou/uL (0.0-0.7); #Lymphocytes 0.8 thou/uL (1.20-3.40); #Monocytes 0.7 thou/uL (0.11-0.59); #Neutrophils 5.2 thou/uL (1.40-6.50); %Basophils 0.1 % (0.0-1.0); %Eosinophils 0.8 % (0.0-10.0); %Lymphocytes 11.6 % (21.0-51.0); %Monocytes 10.5 % (0.0-10.0); %Neutrophils 77.1 % (42.0-75.0); Mean Corpuscular HGB CONC 29.6 g/dL (32.0-36.0); Mean Corpuscular Hemoglobin 26.6 pg (27.0-31.0); Mean Corpuscular Volume 89.7 fl (80.0-94.0); Platelet Count 96 thou/uL (130-400); RBC Distribution Width 16.4 % (11.5-14.5); Red Blood Cell (RBC) Count 2.26 mill/uL (4.70-6.10); White Blood Cell (WBC) Count 6.8 thou/uL (4.8-10.8)
[2017-10-26] MEDS ORDERED: Polyethylene Glycol 3350 17 GM Packet PO PRN (06:30)
--- NOTE | 2017-10-26 08:46 | PRG ---
DATE OF SERVICE: 10/26/2017 SUBJECTIVE: Mr. Pryor is a 77-year-old white male who was admitted for right hip fracture and has undergone a right hip surgery with Dr. Dimas. He had a right hip TFN nail placement. No other complaints except that of anxiety. I have decided to give him Ativan 0.25 mg tablet twice a day as needed. No complaints of chest pain or shortness of breath. This morning he was noted to have a hemoglobin of 6 and for this reason, I have ordered 2 units of packed RBC with dialysis. I am currently at the dialysis supervising his treatment. PHYSICAL EXAMINATION: VITAL SIGNS: Blood pressure is 123/62, heart rate 90, respiratory rate 15, temperature 99, pulse ox 96%. GENERAL: Noted to be awake, anxious, but not in distress. SKIN: Adequate turgor. HEENT: Pale conjunctivae, anicteric sclerae. NECK: No neck mass, no carotid bruits, no JVD. CHEST: No deformities. LUNGS: Clear breath sounds. No wheezing, no crackles. HEART: Normal sinus rhythm. No murmur, no gallops, no rubs. ABDOMEN: Globular, soft, nontender, no masses. EXTREMITIES: No edema, no deformities. MEDICATIONS: 10/26/2017 - Reviewed. LABORATORY: 10/26/2017 - White count 6.8, hemoglobin 6, sodium 132, potassium 4.7, chloride 98, carbon dioxide 24, BUN 42, creatinine 6.74, glucose 117, calcium is 7.7. ASSESSMENT AND PLAN: 1. Anemia - transfuse 2 units of packed red blood cells today. Continue weekly Epogen and ferrous sulfate. 2. End-stage renal disease/chronic renal failure - continue 3 times a week hemodialysis. I have placed this patient on 3 times a week hemodialysis regimen. In addition, I have consulted Surgery for placement of a cuffed hemodialysis catheter. 3. Hyperphosphatemia, Renvela has been started. 4. Secondary hyperparathyroidism - calcitriol 0.25 mcg tab daily has been started. 5. Anxiety - Ativan 0.25 mg tab bid prn Overall, I agree with current management. Recheck base met and CBC and phosphorus in the a.m. MTDD
[2017-10-26] MEDS: Lorazepam 0.5 MG TAB PO PRN (08:52)
[2017-10-26] MEDS: Sevelamer Carbonate 800 MG TAB PO SCH ×3 (09:31→21:28)
[2017-10-26] MEDS: hydrALAZINE 25 MG TAB PO SCH ×2 (11:40→18:36)
[2017-10-26] MEDS: Insulin Detemir 100 UNITS/ML 5 UNITS in Pre-Filled Syringe 1 EACH SC SCH (11:41)
[2017-10-26] MEDS: Calcitriol 0.25 MCG CAP PO SCH (11:43)
[2017-10-26] MEDS: Carvedilol 3.125 MG TAB PO SCH ×2 (11:43→21:15)
[2017-10-26] MEDS: Ferrous Sulfate 325 MG TAB PO SCH ×2 (11:44→21:15)
[2017-10-26] MEDS: Ascorbic Acid 500 mg Chewable Tablet PO SCH ×2 (11:44→18:36)
[2017-10-26] MEDS: Ketotifen Fumarate 0.025% Ophth Soln 5 ml Bottle R EYE SCH ×2 (11:45→21:17)
[2017-10-26] MEDS: traMADol HCl 50 MG TAB PO SCH ×2 (14:11→21:16)
[2017-10-26] MEDS ORDERED: CEFAZOLIN/Water 2 GM/20 ML SYRINGE SLOW IVP SCH (17:15)
--- NOTE | 2017-10-26 17:45 | PRG ---
DATE OF SERVICE: 10/26/2017 ATTENDING PHYSICIAN: Kevin Thompson DO SUBJECTIVE: Mr. Pryor is a 77-year-old male who was admitted on 10/22/2017 after suffering a ground l evel fall resulting in a right comminuted intertrochanteric and subtrochanteric hip fracture. The brenda stuart has a significant past medical history including end-stage renal disease, not previous on dialy sis before this admission. Also, has a history of recent STEMI 3 weeks ago and a new second-degree h eart block. The patient had a temporary dialysis catheter put in place at the beginning of this admi ssion and he has been getting dialyzed and tolerating that well. He is now postop day #2 status post surgical fixation of his right hip. He was seen this morning on exam in the dialysis unit. He loca lizes no complaints other than anxiety after his daughter left. OBJECTIVE: VITAL SIGNS: BP 123/62, pulse 98, temperature 99.0, respirations 15, O2 sat 96% on room air. GENERAL: The patient is an elderly male, in no acute distress. HEENT: Normocephalic and atraumatic. RESPIRATORY: Lungs are clear to auscultation bilaterally. CARDIOVASCULAR: Normal sinus rhythm. He has no murmurs, gallops or rubs. ABDOMEN: Not examined. EXTREMITIES: The patient moves all extremities. NEUROLOGIC: The patient is alert and oriented this morning. His GCS is 15. LABORATORY DATA: Hematology: WBC 6.8, hemoglobin 6.0, hematocrit 20.2, platelets 96. Chemistry: S odium 132, potassium 4.7, chloride 98, bicarbonate 24, BUN 42, creatinine 6.74, glucose 117, calcium 7.7. IMAGING: There are no images to review today. ASSESSMENT: 1. Status post ground level fall. 2. Right intertrochanteric and subtrochanteric hip fracture, status post open reduction internal fix ation. 3. End-stage renal disease, requiring hemodialysis. 4. Cardiac history including ST elevation myocardial infraction and second-degree heart block as wel l as congestive heart failure. 5. Anemia. PLAN: 1. Continue care on telemetry. 2. The patient has agreed to permanent dialysis catheter placement. 3. The patient under the care of Dr. Tilley. Recommending 3 times a week hemodialysis. I appreciate r ecommendations. 4. Anemia. The patient has been given 2 units of packed red blood cells this morning. 5. The patient was given a 0.25 mg Ativan for anxiety. 6. Continue chemistry and CBCs daily. 7. Case management is following for help with discharge placement. 8. Dr. Benavides consulted for permanent dialysis catheter placement. This patient was seen and examined along with Dr. Kevin Thompson on rounds, who agrees with the assess ment and plan.
[2017-10-26] MEDS: Insulin Regular 300 UNITS/3 ML VIAL SC PRN (21:13)
[2017-10-26] MEDS: Amlodipine 10 MG TAB PO SCH (21:15)
[2017-10-26] MEDS: Famotidine 20 MG TAB PO SCH (21:17)
[2017-10-27] MEDS: Acetaminophen 500 MG TAB PO SCH ×4 (05:22→21:17)
[2017-10-27] MEDS: Carvedilol 3.125 MG TAB PO SCH ×2 (05:23→21:19)
[2017-10-27 05:29] LABS: #Eosinphils 0.1 thou/uL (0.0-0.7); #Lymphocytes 0.9 thou/uL (1.20-3.40); #Monocytes 0.9 thou/uL (0.11-0.59); #Neutrophils 5.1 thou/uL (1.40-6.50); %Basophils 0.1 % (0.0-1.0); %Eosinophils 1.6 % (0.0-10.0); %Lymphocytes 12.5 % (21.0-51.0); %Monocytes 12.5 % (0.0-10.0); %Neutrophils 73.3 % (42.0-75.0); Mean Corpuscular HGB CONC 30.9 g/dL (32.0-36.0); Mean Corpuscular Hemoglobin 28.9 pg (27.0-31.0); Mean Corpuscular Volume 93.4 fl (80.0-94.0); Mean Platelet Volume 11.6 fL (7.4-10.4); Platelet Count 123 thou/uL (130-400); RBC Distribution Width 15.1 % (11.5-14.5); Red Blood Cell (RBC) Count 2.76 mill/uL (4.70-6.10); White Blood Cell (WBC) Count 6.9 thou/uL (4.8-10.8)
[2017-10-27 05:40] LABS: Anion Gap 14 mmol/L (10-20); BUN (Urea Nitrogen) 35 mg/dL (8.4-25.7); Calc. Creatinine Clearance 12 mL/min (70-130); Carbon Dioxide 24 mmol/L (23-31); Chloride 100 mmol/L (98-107); Estimated GFR-MDRD 12; Glucose 179 mg/dL (83-110); Potassium 4.4 mmol/L (3.5-5.1); Sodium 134 mmol/L (136-145)
[2017-10-27] MEDS ORDERED: Heparin 10,000 UNITS/ 10 ML VIAL ONE (07:38)
--- NOTE | 2017-10-27 08:19 | PRG ---
DATE OF SERVICE: 10/27/2017. SUBJECTIVE: Mr. Rony Pryor is a 77-year-old black male with chronic renal failure/ESRD and was init ially admitted for a right hip fracture. In the interim, also had a right hip TFN nail placement. Mabel dhillon has also been initiated on dialysis and is doing well. He is tolerating said treatment. This morn ing, has no new complaints. No chest pain, no shortness of breath. He slept well last night. PHYSICAL EXAMINATION: VITAL SIGNS: Blood pressure 142/72, heart rate 93, respiratory rate 18, temperature 99, pulse ox 98% . GENERAL: Awake, comfortable, not in distress. SKIN: Adequate turgor. HEENT: He has slightly pale conjunctivae, anicteric sclerae. NECK: No neck mass, no carotid bruits, no JVD. CHEST: No deformities. LUNGS: Clear breath sounds, no wheezing, no crackles. HEART: Normal sinus rhythm. No murmur, no gallops or rubs. ABDOMEN: Globular, soft, nontender. No masses. EXTREMITIES: No edema. MEDICATIONS: 10/27/2017 - Reviewed. LABORATORY: 10/27/2017 - White count 6.9, hemoglobin 8. Sodium 134, potassium 4.4, chloride 100, ca rbon dioxide 24, BUN 35, creatinine 5.43, glucose 179, calcium 8.0. ASSESSMENT AND PLAN: 1. Chronic renal failure/end-stage renal disease. Hemodialysis has been initiated. He has been laine erating the said treatment. He has been tolerating the fluid removal. Due to the recent surgery, no heparin is being used. 2. Anemia - status post blood transfusion given 2 units. In addition, we have started him on Epogen and iron supplementation. 3. Right hip fracture. The patient is status post hip surgery, doing well. Awaiting rehab placement. We will recheck base met and CBC in a.m.
[2017-10-27] MEDS: Ascorbic Acid 500 mg Chewable Tablet PO SCH ×2 (08:28→15:36)
[2017-10-27] MEDS: Sevelamer Carbonate 800 MG TAB PO SCH ×3 (08:29→15:36)
[2017-10-27] MEDS: Calcitriol 0.25 MCG CAP PO SCH (08:30)
[2017-10-27] MEDS: Ferrous Sulfate 325 MG TAB PO SCH ×2 (08:31→21:17)
[2017-10-27] MEDS: Ketotifen Fumarate 0.025% Ophth Soln 5 ml Bottle R EYE SCH ×2 (08:32→21:19)
[2017-10-27] MEDS: Polyethylene Glycol 3350 17 GM Packet PO SCH (08:33)
[2017-10-27] MEDS ORDERED: Senokot S 8.6-50 MG TAB PO SCH ×3 (09:00→13:45)
[2017-10-27] MEDS: Insulin Detemir 100 UNITS/ML 5 UNITS in Pre-Filled Syringe 1 EACH SC SCH (09:00)
[2017-10-27] MEDS: Bisacodyl 10 MG SUPP PR SCH (10:40)
[2017-10-27] MEDS: traMADol HCl 50 MG TAB PO SCH ×2 (10:49→21:15)
[2017-10-27] MEDS ORDERED: Bupivacaine/Epinephrine 0.25% 30 ML VIAL ONE (11:15)
--- NOTE | 2017-10-27 12:20 | CON ---
DATE OF CONSULT: 10/26/2017 HISTORY OF PRESENT ILLNESS: Mr. Rony Pryor is a 77-year-old black male patient who lives in [place] with his daughter. He recently moved there after suffering a myocardial infarction. The daughter i s a nurse and was teaching at [employer], PALS and CPR, when Mr. Rony Pryor suffered a fall, resulting in a hip fracture. During his myocardial infarction, he did not have a cardiac catheterization evaluatio n due to his chronic kidney disease. This hospitalization, Dr. Markel Aponte on 10/22/2017, placed a Tr ialysis catheter and Dr. Dimas on 10/24/2017 performed a right hip nail. Family hopes that the pa tient is able to resume ambulation and the patient has been well motivated in the past, although, is suffering encephalopathy. Family has made a decision to proceed with dialysis. Dr. Tilley has asked me to see him regarding placement of a dialysis catheter. He has a temporary Trialysis catheter. 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 He is a nonsmoker. He has been healt hy otherwise. He did ensure an intentional weight loss and his diabetes control has improved. He romero s had a long history of hypertension and diabetes mellitus type 2. Ultrasound vein mapping has been obtained in this hospitalization, revealing right upper extremity cephalic vein 2.2, 1.5, 1.4, and 2 mm at the elbow and 1.9 mm mid forearm and 2.5 mm at the wrist. Basilic vein 4.9, 3.2, 3.6 and 3.3 a t the elbow. Left cephalic vein, 1.7, 1.2, 1.4 mm and 2.9 mm at the elbow and 1.9, 1.3 mm at the [address]ri st. Basilic vein on the left, 5.2, 6.2, 6.3 mm at the elbow 4.3 mm and 2.7 to 1.9 mm in the forearm to wrist. ALLERGIES: None. TOBACCO: None. ALCOHOL: None. HOME MEDICATIONS: Include insulin 5 units subcu daily, sodium bicarbonate 650 daily, hydralazine 100 t.i.d., Lipitor 40 mg at bedtime, Coreg 3.25 mg b.i.d., Tylenol p.r.n., tramadol p.r.n., furosemide 40 mg b.i.d., Norvasc 10 mg daily, Cardura 4 mg daily, aspirin 81 mg daily and Plavix 75 mg a day. PAST SURGICAL HISTORY: ORIF right hip, left eye surgery - retina, shoulder surgery, bilateral rotato r cuff. PAST MEDICAL HISTORY: STEMI and second-degree heart block; CHF; diabetes mellitus type 2, on insulin ; hypertension; hyperlipidemia; elevated cholesterol; end-stage renal disease necessitating dialysis initiated this hospitalization. This hospitalization, Dr. Mccullough has seen the patient and discussed future cardiac catheterization now that he has started dialysis. He has a second-degree Wenckebach t ype heart block. REVIEW OF SYSTEMS: Otherwise, noncontributory. PHYSICAL EXAMINATION: VITAL SIGNS: Height 5 feet. Weighs 858 pounds. Temperature 100.8 degrees, pulse 107, blood pressur e 128/66 and heart rate 108. HEENT: Unremarkable. LUNGS: Clear to auscultation. CARDIAC: Regular rate and rhythm without murmur or gallop. ABDOMEN: Soft and nontender. EXTREMITIES: Unremarkable. Palpable radial pulses, mild edema. LABORATORY DATA: White count 6.8 and hemoglobin 6. Sodium 132 and potassium 4.7. ASSESSMENT AND PLAN: 1. End-stage renal disease with a temporary Trialysis catheter growing. Plan placement of hemodialy sis catheter as well as a right arm primary fistula, Prince versus more proximal and possible prosthe tic graft. I have discussed these issues with the family. I have informed the family that he may ne ed a secondary operation gaining access to get functioning fistula. There are risks of thrombosis, i schemic hand revisions, possible prosthetic graft pending operative findings. We would plan procedur e under sedation and regional anesthesia. We would avoid IV access in the arms. IV access should be to his Trialysis catheter. 2. Diabetes mellitus. 3. Hypertension. 4. Coronary artery disease, possible cardiac catheterization in the near future.
[2017-10-27] MEDS ORDERED: PROPOFOL 200 MG/20 ML VIAL ONE (12:45)
[2017-10-27] MEDS ORDERED: Midazolam HCl 2 mg/2 ml Vial ONE ×2 (14:59→16:46)
[2017-10-27] MEDS ORDERED: Fentanyl 100 MCG/2 ML VIAL ONE (14:59)
[2017-10-27] MEDS ORDERED: Morphine 4 MG/ML VIAL ONE (16:21)
[2017-10-27] MEDS ORDERED: Ondansetron HCl/PF 4 MG/2 ML Vial ONE (16:29)
[2017-10-27] MEDS ORDERED: Lidocaine 2% 10 ML INJ ONE (16:41)
[2017-10-27] MEDS ORDERED: Heparin 5,000 UNITS/ML VIAL ONE (16:41)
[2017-10-27] MEDS ORDERED: Bupivacaine HCl 0.5%/Epinephrine 1:200,000/PF 30 ml Vial ONE (16:41)
[2017-10-27] MEDS ORDERED: Heparin 10,000 UNITS/1 ML VIAL ONE ×2 (16:41→16:48)
[2017-10-27] MEDS ORDERED: Protamine Sulfate 50 MG/5 ML VIAL ONE (16:41)
[2017-10-27] MEDS ORDERED: Sodium Chloride 0.9% 0 ML ONE (16:41)
--- NOTE | 2017-10-27 16:45 | PRG ---
DATE OF SERVICE: 10/27/2017 ATTENDING PHYSICIAN: Dr. Kevin Thompson. SUBJECTIVE: Mr. Pryor is a 77-year-old male who was admitted on 10/22/2017 after suffering a ground l evel fall resulting in a right comminuted intertrochanteric and subtrochanteric hip fracture. The brenda stuart has a significant past medical history including end-stage renal disease, previously on dialysi s before this admission. He has had a temporary dialysis catheter placed [facility]. Currently, he is having discussion with Dr. Miguel Benavides about getting a permanent dialysi s catheter placed. He is feeling well this morning and not reporting any pain. He reports that he s lept well overnight. OBJECTIVE: VITAL SIGNS: Blood pressure 133/76, pulse 91, temperature 99.4, respirations 18 and O2 sat 96% on ro om air. GENERAL: The patient is an elderly male in no acute distress. HEENT: Normocephalic and atraumatic. RESPIRATORY: His lungs are clear to auscultation bilaterally. CARDIOVASCULAR: Regular rate and rhythm. No murmurs, gallops or rubs. ABDOMEN: Not examined. EXTREMITIES: The patient moves all extremities. NEUROLOGIC: The patient is grossly alert and oriented this morning. GCS is 15. LABORATORY DATA: Hematology: WBC is 6.9, hemoglobin 8.0, hematocrit 25.8 and platelets 123. Chemis try: Sodium 134, potassium 4.4, chloride 100, bicarbonate 24, BUN 35, creatinine 5.43, glucose 179 a nd calcium 8.0. IMAGES: There are no images to review today. ASSESSMENT: 1. Status post ground level fall. 2. Right hip fracture, status post open reduction and internal fixation. 3. End-stage renal disease, requiring hemodialysis. 4. Cardiac history including ST elevation myocardial infarction and secondary degree heart block as well as congestive heart failure. 5. Anemia. PLAN: 1. Continue care in telemetry. 2. The patient has agreed to permanent dialysis catheter after consultation with Dr. Benavides. 3. Case management is following for discharge planning. Currently, awaiting insurance authorization for rehabilitation. 4. The patient's hemoglobin and hematocrit have improved after 2 units of packed red blood cells yes terday. We will continue to trend daily CBCs and chemistry. This patient was seen and examined along with Dr. Kevin Thompson who agrees with the assessment and pl an.
[2017-10-27] MEDS ORDERED: CEFAZOLIN/Water 2 GM/20 ML SYRINGE ONE (16:59)
[2017-10-27] MEDS ORDERED: Propofol 500 MG/50 ML VIAL ONE (17:04)
--- NOTE | 2017-10-27 20:43 | RAD ---
SINGLE VIEW OF THE CHEST: 10/27/17 COMPARISON: 10/22/17 HISTORY: Central line placement. Renal failure. FINDINGS: Single view of the chest shows enlarged but stable cardiomediastinal silhouette. Atherosclerotic calc ifications are seen in the aorta. There is a right IJ dialysis catheter with its tip in the superior vena cava. There is a left IJ central venous catheter with its tip in the superior vena cava. No pneu mothorax is seen. increased interstitial lung markings are stable. There is no evidence of consolidat ion, mass or pleural effusion. IMPRESSION: Status post dialysis catheter and central line placement without evidence of complication. POS: LELAND
[2017-10-27] MEDS: Senokot S 8.6-50 MG TAB PO SCH (21:15)
[2017-10-27] MEDS: Amlodipine 10 MG TAB PO SCH (21:17)
[2017-10-27] MEDS: Famotidine 20 MG TAB PO SCH (21:17)
--- NOTE | 2017-10-28 00:01 | OP ---
DATE OF PROCEDURE: 10/27/2017 PREOPERATIVE DIAGNOSES: End-stage renal disease, poor venous structures for primary fistula of right hand. POSTOPERATIVE DIAGNOSES: End-stage renal disease, poor venous structures for primary fistula of righ t hand. PROCEDURE: Left IJ triple-lumen catheter, right IJ cuffed-tunnel hemodialysis catheter, angiodynamic s precurved. Expiration of right forearm noting inadequate veins with placement of a tapered dialysi s graft, 4T07 PTFE graft, between the brachial artery above the antecubital fossa to the axillary vei n. Axillary vein of good quality and brachial artery of good quality. SURGEON: Dr. Miguel Benavides. ANESTHESIA: Regional, TIVA, local 0.5% Marcaine with epinephrine 30 mL mixed with 2% Xylocaine, 10 m L. PROCEDURE IN DETAIL: Patient was taken to the operating room where under intravenous sedation and ri [facility] arm regional anesthesia, neck, chest, and right upper extremity was prepped with ChloraPrep and d raped in routine fashion. Local anesthetic infiltrated into the skin and subcutaneous tissue about t he operative sites. Ultrasound used to cannulate the right and left internal jugular veins with troc ar catheter. J-wire threaded. Trocar catheter removed. Skin incised and enlarged sharply. Selding er technique used to place a left IJ triple-lumen catheter securing it with 3-0 nylon suture. Biopat removed the guide wire and aspirated each port with blood, flushed with saline solution. Sterile dressing applied. A stab incision made over the right chest. Using the tunneling device, the precurved angiodynamics c uffed tunnel hemodialysis catheter tunneled between the 2 incisions, placing the fabric cuff beneath the skin exit site. Catheter secured with 2 interrupted sutures of 3-0 nylon. Biopatch sterile dres sing applied. Smaller and medium-sized dilators placed over the J-wire into the internal jugular vei n removed. Dilator and pull-away sheath placed over the J-wire into the internal jugular vein and lewis perior vena cava and dilator and J-wire removed. Catheter placed with pull-away sheath. Pull-away s jordy removed. Platysma approximated with 4-0 Monocryl, skin with subdermal 4-0 Monocryl and DermaGl ue applied. Each port aspirated blood and flushed with saline solution and heparinized saline soluti on 1000 units heparin per mL indicated volume of the port. Incision made in the proximal volar forearm, carried down through skin and subcutaneous tissue below the antecubital fossa. Antecubital vein was inadequate. Subcutaneous tissues approximated with 3-0 Monocryl, skin with subdermal 4-0 Monocryl, and DermaGlue applied. Incision made longitudinally of t he brachial artery, longitudinally just above the antecubital fossa and another incision made in the right axilla, carried down through the skin and subcutaneous tissue and deep fascia, identifying the large brachial artery; deep to this was a good-sized axillary vein. This was dissected free, control led proximally and distally with Silastic vessel loops. Jes-Wick tunneler #12 head used to tunnel a tapered PTFE graft 4T07 between the two incisions. Patient given 6000 units heparin intravenously after adequate circulation time, the brachial artery was clamped proximally and distally and longitud inal arteriotomy made sharply and elongated with the Warren scissors and the 4 mm end of the graft renetta lored for a Cobra head anastomosis using continuous suture of 6-0 Prolene and completed the anastomos is. Surgicel was applied. Vascular clamps released. There were some excellent arterial outflow in the graft. Vascular clamp placed on the graft and Surgicel applied. Attention was then turned to th e right axilla. Axillary vein controlled proximally and distally with Silastic Warren loops. Longitu dinal venotomy made for a 3 cm anastomosis and stay sutures of 6-0 Prolene used to hold the vein open and accessible. Graft tailored only for a Cobra head anastomosis for appropriate length and continu ous suture of 6-0 Prolene used for the anastomosis. Once this was completed, arterial inflow release d, flushing the air from the graft and venous outflow released and good hemostasis noted. The patien t given 25 mg intravenously by Anesthesia protamine. Good hemostasis noted. Surgicel applied. Subc utaneous tissues approximated with 3-0 Monocryl, skin with subdermal 4-0 Monocryl, and DermaGlue appl ied. The patient tolerated the procedure well.
[2017-10-28] MEDS: traMADol HCl 50 MG TAB PO PRN ×2 (00:22→12:42)
[2017-10-28] MEDS: Acetaminophen 500 MG TAB PO SCH ×4 (03:49→21:10)
[2017-10-28 05:27] LABS: #Eosinphils 0.1 thou/uL (0.0-0.7); #Lymphocytes 0.8 thou/uL (1.20-3.40); #Monocytes 0.7 thou/uL (0.11-0.59); #Neutrophils 4.5 thou/uL (1.40-6.50); %Basophils 0.1 % (0.0-1.0); %Eosinophils 0.9 % (0.0-10.0); %Lymphocytes 12.5 % (21.0-51.0); %Monocytes 11.3 % (0.0-10.0); %Neutrophils 75.2 % (42.0-75.0); Hemoglobin 7.4 g/dL (14.0-18.0); Mean Corpuscular HGB CONC 31.3 g/dL (32.0-36.0); Mean Corpuscular Hemoglobin 28.3 pg (27.0-31.0); Mean Corpuscular Volume 90.2 fl (80.0-94.0); Mean Platelet Volume 10.3 fL (7.4-10.4); Platelet Count 141 thou/uL (130-400); RBC Distribution Width 14.8 % (11.5-14.5); Red Blood Cell (RBC) Count 2.62 mill/uL (4.70-6.10)
[2017-10-28 05:52] LABS: Anion Gap 12 mmol/L (10-20); BUN (Urea Nitrogen) 52 mg/dL (8.4-25.7); Calc. Creatinine Clearance 9 mL/min (70-130); Calcium 7.9 mg/dL (7.8-10.44); Carbon Dioxide 28 mmol/L (23-31); Chloride 99 mmol/L (98-107); Estimated GFR-MDRD 10; Glucose 216 mg/dL (83-110); Potassium 4.4 mmol/L (3.5-5.1); Sodium 135 mmol/L (136-145)
[2017-10-28] MEDS: Insulin Regular 300 UNITS/3 ML VIAL SC PRN ×2 (06:22→17:40)
[2017-10-28] MEDS: Lorazepam 0.5 MG TAB PO PRN (07:43)
[2017-10-28] MEDS ORDERED: Epoetin (ESRD) 20,000 UNITS/ML SC SCH (08:15)
--- NOTE | 2017-10-28 08:51 | PRG ---
DATE OF SERVICE: 10/28/2017 SUBJECTIVE: Mr. Pryor is a 77-year-old black male who was admitted for right hip fracture, underwent right hip surgery, also initiated dialysis due to the worsening creatinine. He has been on dialysis for the last 1 week. He is tolerating said treatment. He is currently undergoing dialysis today. I am at the bedside supervising his dialysis. He is tolerating said treatment. He was also noted to be anemic 2 days ago. He received 2 units of packed RBC. Epogen and iron has been initiated with darius m. He voices no new complaints today. PHYSICAL EXAMINATION: VITAL SIGNS: Blood pressure is 102/54, heart rate 91, respiratory rate 16, temperature 98.8, and pul se ox 95%. GENERAL: Awake, supine, comfortable, not in overt distress. SKIN: Adequate turgor. HEENT: Slightly pale conjunctivae, anicteric sclerae. NECK: No neck mass, no carotid bruits, no JVD. CHEST: No deformities. LUNGS: Clear breath sounds, no wheezing, no crackles. HEART: Normal sinus rhythm. No murmur, no gallops, no rubs. ABDOMEN: Globular, soft, nontender, no masses. EXTREMITIES: No edema, no deformities. MEDICATIONS: Of 10/28/2017 was reviewed. LABORATORY DATA: Of 10/28/2017, white count 6, hemoglobin 7.4, sodium 135, potassium 4.4, chloride 9 9, carbon dioxide 28, BUN 52, creatinine 6.8, glucose 216, and calcium 7.9. ASSESSMENT AND PLAN: 1. Chronic renal failure/end-stage renal disease - stable. Tolerating current hemodialysis regimen. My plan is to do a 3-1/2-hour hemodialysis. We will continue 3 times a week dialysis. Fluid remov al only as tolerated. Using no heparin due to the recent surgery. 2. Status post right hip fracture - status post surgery, doing well. Awaiting rehab placement. 3. Anemia - we will adjust Epogen to 10,000 units subcutaneously every week. Continue ferrous sulfa te. 4. Renal osteodystrophy - on Renvela and calcitriol. We will check base met and CBC in a.m.
[2017-10-28] MEDS ORDERED: Epoetin (ESRD) 10,000 UNITS/ML VIAL SC SCH (10:00)
[2017-10-28] MEDS: Ketotifen Fumarate 0.025% Ophth Soln 5 ml Bottle R EYE SCH ×2 (11:00→21:10)
[2017-10-28] MEDS: Sevelamer Carbonate 800 MG TAB PO SCH ×3 (11:11→17:37)
[2017-10-28] MEDS: Ascorbic Acid 500 mg Chewable Tablet PO SCH ×2 (11:11→17:30)
[2017-10-28] MEDS: Bisacodyl 10 MG SUPP PR SCH (11:12)
[2017-10-28] MEDS: traMADol HCl 50 MG TAB PO SCH ×3 (11:13→21:12)
[2017-10-28] MEDS: Calcitriol 0.25 MCG CAP PO SCH (12:39)
[2017-10-28] MEDS: Senokot S 8.6-50 MG TAB PO SCH ×2 (12:40→21:13)
[2017-10-28] MEDS: Ferrous Sulfate 325 MG TAB PO SCH ×2 (12:40→21:11)
[2017-10-28] MEDS: Carvedilol 3.125 MG TAB PO SCH ×2 (12:41→21:11)
[2017-10-28] MEDS: Polyethylene Glycol 3350 17 GM Packet PO SCH (12:47)
[2017-10-28] MEDS: Insulin Detemir 100 UNITS/ML 5 UNITS in Pre-Filled Syringe 1 EACH SC SCH (12:47)
[2017-10-28] MEDS: Ondansetron HCl/PF 4 MG/2 ML Vial IVP PRN (13:08)
--- NOTE | 2017-10-28 13:13 | PRG ---
DATE OF SERVICE: 10/28/2017 ATTENDING PHYSICIAN: Kevin Thompson DO SUBJECTIVE: Mr. Pryor is a 77-year-old man who was admitted for right hip fracture. He has end-stage renal disease, but had not previously been getting dialysis. He had a temporary dialysis catheter p ut in place in the hospital and has been receiving dialysis for the last week. He is now status post permanent dialysis catheter placement with Dr. Benavides. The patient has also been anemic. He receiv ed 2 units of packed red blood cells 2 days ago and has been getting Epogen and iron as well. He was seen this morning in the dialysis unit. He really voices no complaints and says he slept well overn ight. OBJECTIVE: VITAL SIGNS: BP 102/54, pulse 91, temperature 98.8, respirations 16, O2 sat 95% on room air. GENERAL: The patient is an elderly adult male, in no acute distress. HEENT: Normocephalic and atraumatic. RESPIRATORY: Breath sounds are clear to auscultation bilaterally. CARDIOVASCULAR: Regular rate and rhythm. No murmurs, gallops or rubs. ABDOMEN: Soft, nontender, nondistended. EXTREMITIES: The patient moves all extremities. NEUROLOGIC: The patient is grossly alert and oriented this morning. His GCS is 15. LABORATORY DATA: Hematology: WBC 6.0, hemoglobin 7.4, hematocrit 23.6, platelets 141. Chemistry: Sodium 135, potassium 4.4, chloride 99, bicarbonate 28, BUN 52, creatinine 6.80, glucose 216, calcium 7.9. IMAGING: Chest x-ray from 10/27/2017. Impression: Status post dialysis catheter and central line p lacement without evidence of complication. ASSESSMENT AND PLAN: 1. Status post ground level fall. 2. Right hip fracture, status post open reduction internal fixation. 3. End-stage renal disease, requiring hemodialysis. 4. Cardiac history including ST elevation myocardial infarction and a new second-degree heart block as well as congestive heart failure. 5. Anemia. PLAN: 1. Continue care in telemetry. 2. The patient being followed by Dr. Tilley. Nephrology appreciate recommendations. 3. Case management is following for discharge planning. Currently, awaiting insurance authorization for rehab placement. This patient was seen and examined along with Dr. Kevin Thompson on rounds, who agrees with this asses sment and plan.
[2017-10-28] MEDS: Amlodipine 10 MG TAB PO SCH (21:10)
[2017-10-28] MEDS: Famotidine 20 MG TAB PO SCH (21:11)
--- NOTE | 2017-10-29 00:15 | PRG ---
DATE OF SERVICE: 10/28/2017 Konstantin Uribe is doing well today. His right arm dialysis graft has a good thrill and bruit. His surg ical wounds in right arm and axilla looked good. No wound problems. Overall, the patient is doing w ell. We recommend that he see me in the office in 2-3 weeks. He can begin using his dialysis graft right arm in 4 weeks. We would use his hemodialysis catheter until that time. There are no restrictions i n use of his right arm. He can lift and exercise that as able. I will see him as needed this hospit alization. Please call if necessary.
[2017-10-29] MEDS: traMADol HCl 50 MG TAB PO PRN ×2 (04:13→16:38)
[2017-10-29] MEDS: Acetaminophen 500 MG TAB PO SCH ×4 (04:14→20:57)
[2017-10-29 05:31] LABS: #Eosinphils 0.1 thou/uL (0.0-0.7); #Lymphocytes 0.9 thou/uL (1.20-3.40); #Monocytes 0.7 thou/uL (0.11-0.59); %Basophils 0.1 % (0.0-1.0); %Eosinophils 1.9 % (0.0-10.0); %Lymphocytes 11.4 % (21.0-51.0); %Monocytes 8.9 % (0.0-10.0); %Neutrophils 77.7 % (42.0-75.0); Hemoglobin 8.1 g/dL (14.0-18.0); Mean Corpuscular HGB CONC 31.5 g/dL (32.0-36.0); Mean Corpuscular Hemoglobin 28.5 pg (27.0-31.0); Mean Corpuscular Volume 90.7 fl (80.0-94.0); Mean Platelet Volume 9.9 fL (7.4-10.4); Platelet Count 196 thou/uL (130-400); Red Blood Cell (RBC) Count 2.82 mill/uL (4.70-6.10); White Blood Cell (WBC) Count 7.7 thou/uL (4.8-10.8)
[2017-10-29 05:51] LABS: Anion Gap 14 mmol/L (10-20); BUN (Urea Nitrogen) 28 mg/dL (8.4-25.7); Calc. Creatinine Clearance 14 mL/min (70-130); Calcium 8.2 mg/dL (7.8-10.44); Carbon Dioxide 28 mmol/L (23-31); Chloride 98 mmol/L (98-107); Estimated GFR-MDRD 15; Glucose 165 mg/dL (83-110); Potassium 4.1 mmol/L (3.5-5.1); Sodium 136 mmol/L (136-145)
[2017-10-29] MEDS ORDERED: Epoetin (ESRD) 10,000 UNITS/ML VIAL SC SCH (09:00)
[2017-10-29] MEDS: Sevelamer Carbonate 800 MG TAB PO SCH ×3 (10:01→16:39)
[2017-10-29] MEDS: Ferrous Sulfate 325 MG TAB PO SCH ×2 (10:02→20:53)
[2017-10-29] MEDS: Carvedilol 3.125 MG TAB PO SCH ×2 (10:02→20:53)
[2017-10-29] MEDS: Calcitriol 0.25 MCG CAP PO SCH (10:03)
[2017-10-29] MEDS: Ascorbic Acid 500 mg Chewable Tablet PO SCH ×2 (10:04→16:37)
--- NOTE | 2017-10-29 10:05 | PRG ---
DATE OF SERVICE: 10/29/2017 RENAL MEDICINE SUBJECTIVE: Mr. Pryor is a 77-year-old black male who was admitted for right hip fracture, chronic re nal failure, underwent right hip surgery as well as initiation of dialysis. A new IJ cuffed hemodial ysis catheter has been placed with this patient as well as an AV graft/fistula. He is doing well. H e has received p.r.n. blood transfusion. Epogen has been initiated with this patient. This morning, he is feeling better, has no new complaints. The patient denies any chest pain or shortness of antoinette th. His appetite is picking up. OBJECTIVE: VITAL SIGNS: Blood pressure 112/57, heart rate 100, respiratory rate 18, temperature 98.2, and pulse ox 92%. GENERAL: Noted to be awake, alert, comfortable, not in distress. SKIN: Adequate turgor. HEENT: Slightly pale conjunctivae, anicteric sclerae. NECK: No neck mass, no carotid bruits, no JVD. CHEST: No deformities. LUNGS: Clear breath sounds. No wheezing, no crackles. HEART: Normal sinus rhythm. No murmur, no gallops or rubs. ABDOMEN: Globular, soft, nontender, no masses. EXTREMITIES: No edema. MEDICATIONS: Of 10/29/2017 was reviewed. LABORATORY DATA: Of 10/29/2017. white count 7.7, hemoglobin 8.1. Sodium 136, potassium 4.1, chlorid e 98, carbon dioxide 28, BUN 28, creatinine 4.65, glucose 165, calcium 8.2. ASSESSMENT AND PLAN: 1. Chronic renal failure/end-stage renal disease, stable. Tolerating current hemodialysis regimen. My plan is to continue 3 times a week hemodialysis with this patient. Again, fluid removal only as tolerated. Holding heparin due to the recent surgery. 2. Renal osteodystrophy - the patient initiated on a phosphate binder and is on calcitriol. 3. Anemia, continuing weekly Epogen. Epogen adjusted upwards to 10,000 units subcutaneously every w red devil. P.r.n. blood transfusion. 4. Status post right hip surgery, doing well. Awaiting rehab transfer. We will recheck base met an d CBC in a.m.
[2017-10-29] MEDS: Ketotifen Fumarate 0.025% Ophth Soln 5 ml Bottle R EYE SCH ×2 (10:07→20:57)
[2017-10-29] MEDS: Insulin Detemir 100 UNITS/ML 5 UNITS in Pre-Filled Syringe 1 EACH SC SCH (10:07)
[2017-10-29] MEDS: Bisacodyl 10 MG SUPP PR SCH (10:10)
[2017-10-29] MEDS: Senokot S 8.6-50 MG TAB PO SCH ×2 (10:12→20:52)
[2017-10-29] MEDS: Polyethylene Glycol 3350 17 GM Packet PO SCH (10:12)
--- NOTE | 2017-10-29 13:00 | PRG ---
DATE OF SERVICE: 10/29/2017 ATTENDING PHYSICIAN: Dr. Kevin Thompson. SUBJECTIVE: Mr. Pryor is a 77-year-old male who was admitted for right hip fracture. He has end-stag e renal disease and had not previously been getting dialysis prior to admission. He is now getting d ialysis and is followed by Dr. Tilley. He is postop day 1, status post a permanent dialysis catheter pl acement by Dr. Benavides. This morning when I examined the patient is alert, conversational and reports no complaints this morning. He says his pain is well controlled. OBJECTIVE: VITAL SIGNS: BP 108/55, pulse 107, temperature 99.4, respirations 20, O2 saturation 94% on room air. GENERAL: The patient is an elderly adult male sitting in bed. He is in no acute distress. HEENT: Normocephalic and atraumatic. RESPIRATORY: Breath sounds clear to auscultation bilaterally. CARDIOVASCULAR: He is tachycardic. He has no murmurs, gallops or rubs. ABDOMEN: Soft, nontender, nondistended. EXTREMITIES: The patient moves all extremities. NEUROLOGIC: The patient is grossly alert and oriented this morning. GCS is 15. LABORATORY DATA: Hematology: WBC 7.7, hemoglobin 8.1, hematocrit 25.6, platelets 196. Chemistry: Sodium 136, potassium 4.1, chloride 98, bicarbonate 28, BUN 28, creatinine 4.65, glucose 165, calcium 8.2. IMAGING: There are no images to review today. ASSESSMENT: 1. Status post ground level fall. 2. Right hip fracture, status post open reduction internal fixation. 3. End-stage renal disease, on hemodialysis. 4. Cardiac history including ST elevation myocardial infarction with a new second degree heart block as well as congestive heart failure. 5. Anemia. PLAN: 1. Continue care in telemetry. 2. The patient is scheduled for dialysis 3 days a week. He has been followed by Dr. Tilley. I appreci ate Nephrology recommendations. 3. Case management is following for discharge planning. Currently, awaiting insurance authorization for rehab placement. Anticipate will have an answer today. This patient was seen and examined with Dr. Kevin Thompson on rounds, who agrees with this assessment and plan.
[2017-10-29] MEDS: Insulin Regular 300 UNITS/3 ML VIAL SC PRN (16:39)
[2017-10-29] MEDS: Famotidine 20 MG TAB PO SCH (20:53)
[2017-10-29] MEDS: Amlodipine 10 MG TAB PO SCH (20:53)
[2017-10-29] MEDS: traMADol HCl 50 MG TAB PO SCH (20:54)
[2017-10-30] MEDS: Acetaminophen 500 MG TAB PO SCH ×4 (03:50→22:06)
[2017-10-30 04:02] LABS: #Eosinphils 0.1 thou/uL (0.0-0.7); #Monocytes 0.7 thou/uL (0.11-0.59); #Neutrophils 5.2 thou/uL (1.40-6.50); %Basophils 0.2 % (0.0-1.0); %Eosinophils 1.4 % (0.0-10.0); %Lymphocytes 13.7 % (21.0-51.0); %Monocytes 10.7 % (0.0-10.0); Hemoglobin 7.8 g/dL (14.0-18.0); Mean Corpuscular HGB CONC 31.7 g/dL (32.0-36.0); Mean Corpuscular Hemoglobin 28.5 pg (27.0-31.0); Mean Corpuscular Volume 89.8 fl (80.0-94.0); Mean Platelet Volume 9.2 fL (7.4-10.4); Platelet Count 206 thou/uL (130-400); RBC Distribution Width 15.1 % (11.5-14.5); Red Blood Cell (RBC) Count 2.73 mill/uL (4.70-6.10)
[2017-10-30 04:21] LABS: Anion Gap 13 mmol/L (10-20); BUN (Urea Nitrogen) 43 mg/dL (8.4-25.7); Calc. Creatinine Clearance 11 mL/min (70-130); Calcium 8.5 mg/dL (7.8-10.44); Carbon Dioxide 30 mmol/L (23-31); Chloride 95 mmol/L (98-107); Estimated GFR-MDRD 11; Glucose 188 mg/dL (83-110); Potassium 4.5 mmol/L (3.5-5.1); Sodium 133 mmol/L (136-145)
[2017-10-30] MEDS: Lorazepam 0.5 MG TAB PO PRN (08:16)
[2017-10-30] MEDS: traMADol HCl 50 MG TAB PO SCH ×2 (08:18→22:07)
--- NOTE | 2017-10-30 10:30 | PRG ---
DATE OF SERVICE: 10/30/2017 RENAL MEDICINE SUBJECTIVE: Mr. Pryor is a 77-year-old black male with chronic renal failure and admitted for right h ip fracture. He underwent right hip surgery. In addition, he has been initiated on hemodialysis. C urrently, he is undergoing dialysis this morning. I am at the bedside supervising his dialysis. The patient tells me he has no chest pain or shortness of breath. He has some mild epigastric discomfor t. He denies any other complaints. PHYSICAL EXAMINATION: VITAL SIGNS: Blood pressure is noted at 113/67, heart rate 104, respiratory rate 18, temperature 98. 7, and pulse ox 99%. GENERAL: Noted to be awake, supine, comfortable, not in overt distress. SKIN: Adequate turgor. HEENT: Slightly pale conjunctivae, anicteric sclerae. NECK: No neck mass, no carotid bruits, no JVD. CHEST: No deformities. LUNGS: Clear breath sounds, no wheezing, no crackles. HEART: Normal sinus rhythm. No murmur, no gallops, no rubs. ABDOMEN: Globular, soft, nontender, no masses. EXTREMITIES: No edema. MEDICATIONS: Medications of 10/30/2017 reviewed. LABORATORY DATA: Laboratories of 10/30/2017; white count 7, hemoglobin 7.8. Sodium 133, potassium 4 .5, chloride 95, carbon dioxide 30, BUN 43, creatinine 6.03, glucose 188, calcium 8.5. ASSESSMENT AND PLAN: 1. End-stage renal disease/chronic renal failure - patient currently on maintenance hemodialysis. Mabel dhillon is tolerating said treatment. He has a new cuffed hemodialysis catheter placed by Dr. Benavides and mabel dhillon currently has an AV fistula. 2. Right hip fracture - status post hip surgery, doing well. 3. We are currently awaiting rehab placement with this patient depending on his insurance. 4. Anemia. Please note patient has been started on Epogen. This has been adjusted upwards - p.r.n. blood transfusion. 5. Renal osteodystrophy - we have initiated calcitriol as well as Renvela with the patient. Overall , patient is doing stable. We will recheck another basic metabolic panel and CBC in a.m.
[2017-10-30] MEDS ORDERED: Heparin 1,000 UNITS/ML VIAL ONE (11:11)
[2017-10-30] MEDS: Carvedilol 3.125 MG TAB PO SCH ×2 (11:16→22:06)
[2017-10-30] MEDS: Ascorbic Acid 500 mg Chewable Tablet PO SCH ×2 (11:22→16:21)
[2017-10-30] MEDS: Senokot S 8.6-50 MG TAB PO SCH ×2 (11:22→22:06)
[2017-10-30] MEDS: Ferrous Sulfate 325 MG TAB PO SCH ×2 (11:23→22:06)
[2017-10-30] MEDS: Calcitriol 0.25 MCG CAP PO SCH (11:23)
[2017-10-30] MEDS: Insulin Detemir 100 UNITS/ML 5 UNITS in Pre-Filled Syringe 1 EACH SC SCH (11:24)
[2017-10-30] MEDS: Sevelamer Carbonate 800 MG TAB PO SCH ×3 (11:24→17:17)
[2017-10-30] MEDS: Bisacodyl 10 MG SUPP PR SCH (11:26)
[2017-10-30] MEDS: Ketotifen Fumarate 0.025% Ophth Soln 5 ml Bottle R EYE SCH ×2 (11:27→22:08)
[2017-10-30] MEDS: Polyethylene Glycol 3350 17 GM Packet PO SCH (11:27)
[2017-10-30] MEDS: Ondansetron HCl/PF 4 MG/2 ML Vial IVP PRN (13:16)
--- NOTE | 2017-10-30 14:20 | PRG ---
DATE OF SERVICE: 10/30/2017 ATTENDING PHYSICIAN: Chet White M.D. SUBJECTIVE: Mr. Pryor is a 77-year-old male who was admitted for right hip fracture. He has end-stag e renal disease and is getting dialysis. He is followed by Dr. Tilley. He is scheduled for dialysis th is morning. On exam, he reports no complaints this morning and says he feels well. OBJECTIVE: VITAL SIGNS: Blood pressure 113/67, pulse 104, temperature 98.7, respirations 18 and O2 sat 99% on r oom air. GENERAL: The patient is an elderly adult male sitting in bed. He is in no acute distress. HEENT: Normocephalic and atraumatic. RESPIRATORY: Breath sounds are clear to auscultation bilaterally. CARDIOVASCULAR: He is tachycardic. He has no murmurs, gallops or rubs. ABDOMEN: Soft, nontender and nondistended. EXTREMITIES: The patient is neurovascularly intact x4. NEUROLOGIC: The patient is grossly alert and oriented this morning. He has a GCS of 15. He has no focal deficits. LABORATORY DATA: Hematology: WBC 7.0, hemoglobin 7.8, hematocrit 24.5 and platelets 206. Chemistry : Sodium 133, potassium 4.5, chloride 95, bicarbonate 30, BUN 43, creatinine 6.03, glucose 188 and c alcium 8.5. IMAGING DATA: There are no images to review today. ASSESSMENT: 1. Status post ground level fall. 2. Right hip fracture, status post open reduction and internal fixation. 3. End-stage renal disease, on hemodialysis. 4. Cardiac history including ST elevation myocardial infarction with new second-degree heart block a s well as congestive heart failure. 5. Anemia. PLAN: 1. Continue care in telemetry. 2. The patient undergoing dialysis 3 days a week. He is being followed by Dr. Tilley. I appreciate Ne phrology recommendations. 3. Case management following for discharge planning. The patient was denied insurance approval for rehabilitation. Consultation is scheduled with Dr. Thompson. We will consider other options including halfway should rehabilitation not work out. This patient was seen and examined and discussed with Dr. White, who agrees with the assessment and plan.
[2017-10-30] MEDS: Famotidine 20 MG TAB PO SCH (22:06)
[2017-10-30] MEDS: Amlodipine 10 MG TAB PO SCH (22:07)
[2017-10-30] MEDS: Insulin Regular 300 UNITS/3 ML VIAL SC PRN (22:09)
[2017-10-31] MEDS: Acetaminophen 500 MG TAB PO SCH ×4 (03:44→21:52)
[2017-10-31 05:27] LABS: #Neutrophils 8.2 thou/uL (1.40-6.50); %Basophils 0.1 % (0.0-1.0); %Eosinophils 0.2 % (0.0-10.0); %Monocytes 9.6 % (0.0-10.0); %Neutrophils 80.1 % (42.0-75.0); Hemoglobin 7.3 g/dL (14.0-18.0); Mean Corpuscular Volume 90.3 fl (80.0-94.0); Mean Platelet Volume 9.1 fL (7.4-10.4); Platelet Count 238 thou/uL (130-400); RBC Distribution Width 15.2 % (11.5-14.5); White Blood Cell (WBC) Count 10.2 thou/uL (4.8-10.8)
[2017-10-31 05:47] LABS: Anion Gap 17 mmol/L (10-20); BUN (Urea Nitrogen) 47 mg/dL (8.4-25.7); Calc. Creatinine Clearance 10 mL/min (70-130); Calcium 8.4 mg/dL (7.8-10.44); Carbon Dioxide 26 mmol/L (23-31); Chloride 94 mmol/L (98-107); Estimated GFR-MDRD 11; Glucose 190 mg/dL (83-110); Potassium 4.5 mmol/L (3.5-5.1); Sodium 132 mmol/L (136-145)
[2017-10-31] MEDS ORDERED: Albumin 25% 25 GM/100 ML BOT IVPB ONE (08:33)
[2017-10-31] MEDS ORDERED: Amlodipine 10 MG TAB PO SCH (08:33)
[2017-10-31] MEDS ORDERED: Carvedilol 3.125 MG TAB PO SCH (08:34)
[2017-10-31] MEDS: Calcitriol 0.25 MCG CAP PO SCH (10:13)
[2017-10-31] MEDS: Sevelamer Carbonate 800 MG TAB PO SCH ×3 (10:13→18:40)
[2017-10-31] MEDS: Ferrous Sulfate 325 MG TAB PO SCH ×2 (10:13→21:53)
[2017-10-31] MEDS: Ascorbic Acid 500 mg Chewable Tablet PO SCH ×2 (10:13→16:14)
[2017-10-31] MEDS: Bisacodyl 10 MG SUPP PR SCH (10:16)
[2017-10-31] MEDS: Senokot S 8.6-50 MG TAB PO SCH ×2 (10:17→21:52)
[2017-10-31] MEDS: Polyethylene Glycol 3350 17 GM Packet PO SCH (10:17)
--- NOTE | 2017-10-31 10:33 | PRG ---
DATE OF SERVICE: 10/31/2017 RENAL MEDICINE SUBJECTIVE: Mr. Pryor is a 77-year-old black male with known history of chronic renal failure. He wa s initially admitted for right hip fracture and underwent right hip surgery. He was also found to romero ve a significantly elevated BUN and creatinine and he was clinically uremic. Hemodialysis was initia ale. He has been tolerating his hemodialysis. However, the dialysis yesterday was shortened due to the fact that the patient became very anxious. At that time, I decided to hold off the dialysis. Th is morning, he is feeling better. He denies any chest pain or shortness of breath. He is less anxio us at the present time. OBJECTIVE: VITAL SIGNS: Blood pressure 99/54, heart rate 103, respiratory rate 18, temperature 99.2, pulse ox 9 7% on room air. GENERAL: Awake, alert, ambulating with assistance. SKIN: Adequate turgor. HEENT: He has slightly pale conjunctivae, anicteric sclerae. NECK: No neck mass, no carotid bruits, no JVD. CHEST: No deformities. LUNGS: Clear breath sounds. No wheezing, no crackles. HEART: Normal sinus rhythm. No murmur, no gallops or rubs. ABDOMEN: Globular, soft, nontender, no masses. EXTREMITIES: No edema, no deformities. MEDICATIONS: Of 10/31/2017 were reviewed. LABORATORY DATA: Of 10/31/2017, white count 10.2, hemoglobin 7.3, sodium 132, potassium 4.5, chlorid e 94, carbon dioxide 26, BUN 47, creatinine 6.23, glucose 190, calcium 8.4. ASSESSMENT AND PLAN: 1. Anxiety - patient currently on Ativan 0.25 mg b.i.d. p.r.n. 2. Anemia - on Epogen and iron supplementation. In the last few days, the Epogen has been increased . If the anemia is persistent, consider having a GI workup with this patient. Continue p.r.n. blood transfusion. 3. Chronic renal failure/end-stage renal disease, stable. Continue current 3 times a week hemodialy sis. There is no indication for any emergent dialysis today. I will reevaluate this patient if he m ay need dialysis tomorrow. I will place this patient on regular Wednesday, Wednesday, Wednesday dialysis. 4. Renal osteodystrophy, currently on calcitriol and Renvela. 5. Status post right hip fracture - The patient is status post right hip surgery. Surgery is follow ing. In addition, the patient is awaiting placement to [facility]. Overall, progno sis remains guarded. Recheck base met and CBC in a.m.
[2017-10-31] MEDS: Carvedilol 3.125 MG TAB PO SCH ×2 (10:56→21:53)
[2017-10-31] MEDS: traMADol HCl 50 MG TAB PO SCH ×2 (10:56→21:57)
--- NOTE | 2017-10-31 10:58 | PRG ---
DATE OF SERVICE: 10/31/2017 ATTENDING PHYSICIAN: Dr. White. SUBJECTIVE: Mr. Pryor is a 77-year-old male who was admitted for a right hip fracture. He is now postop day #7. Overnight, he has had low blood pressures with systolics in the 90s and diastolics in the 50s. On exam this morning, he reports having some mild nausea. Cardiac enzymes were ordered which showed an elevated troponin I at 15. Dr. Gallardo was immediately called and evaluated the patient at bedside. The patient reported having some chest tightness and anxiety yesterday during dialysis, which resolved after he returned to the room. His daughter confirmed that he had a small MN several weeks ago and another small MN a few years ago. In both cases he was recommended catheterization but refused. EKG from yesterday was reviewed and compared with the previous EKG from 10/22/17. Changes were noted but were felt to represent an older MN, possibly from the immediate perioperative period given that his CK-MB was normal. OBJECTIVE: VITAL SIGNS: BP 99/54, pulse 103, temperature 99.2, respirations 18, O2 sat 97 % on room air. GENERAL APPEARANCE: Patient is an elderly adult male. He is sitting in the chair next to the bed. He is in no acute distress. HEENT: Normocephalic, atraumatic. LUNGS: Clear to auscultation bilaterally. CARDIOVASCULAR: He is mildly tachycardic. He has no murmurs, gallops or rubs. ABDOMEN: Soft, nontender, nondistended. EXTREMITIES: Patient neurovascularly intact x4. NEUROLOGIC: The patient is grossly alert and oriented this morning. He has a GCS of 15. He has no focal deficits. LABORATORY DATA: Hematology: WBC 10.2, hemoglobin 7.3, hematocrit 23.5, platelets 238. Chemistry: Sodium 132, potassium 4.5, chloride 94, bicarbonate 26, BUN 47, creatinine 6.23, glucose 190, calcium 8.4. Cardiac: CK-MB 5.6, Troponin I 15.152 IMAGES: There are no images to review today. ASSESSMENT: 1. Status post ground level fall. 2. Right hip fracture, status post open reduction and internal fixation, postoperative day #7. 3. End-stage renal disease, on hemodialysis. 4. Cardiac history including ST elevation myocardial infarction with secondary heart block as well as congestive heart failure. 5. Anemia. 6. Hypotension. PLAN: 1. Elevated cardiac enzymes this morning felt to represent sub-acute MN, most likely one that happened perioperatively. The patient is not reporting any chest pain, although he did have some chest discomfort yesterday accompanied by anxiety. He has been hypotensive overnight with some nausea this morning. Serial cardiac enzymes, an echocardiogram and an EKG were ordered. Dr. Gallardo to consult with Dr. Mccullough to discuss catheterization while patient is in the hospital, rather than in [place] after discharge as had originally been planned. 2. 25 grams albumin given this morning. 3. Continue undergoing dialysis 3 days a week. The patient is being followed by Dr. Tilley. I appreciate recommendations. 4. Case management following her discharge planning. The patient was then initially denied rehab, but may still be accepted pending. Consultation with Dr. Thompson. This patient was seen with Dr. Gallardo and discussed with both Dr. White and Dr. Thompson. All were in agreement with the assessment and plan. SALAZAR
[2017-10-31 10:59] LABS: CKMB 5.6 ng/mL (0-6.6)
[2017-10-31 11:02] LABS: Troponin I 15.152 ng/mL (< 0.028)
[2017-10-31] MEDS: Insulin Detemir 100 UNITS/ML 5 UNITS in Pre-Filled Syringe 1 EACH SC SCH (12:06)
[2017-10-31] MEDS: Ketotifen Fumarate 0.025% Ophth Soln 5 ml Bottle R EYE SCH ×2 (12:07→22:24)
[2017-10-31 12:39] LABS: CKMB 5.3 ng/mL (0-6.6)
[2017-10-31 12:42] LABS: Critical Call Chem Troponin I RESULT DECREASING; Troponin I 14.112 ng/mL (< 0.028)
[2017-10-31] MEDS: Insulin Regular 300 UNITS/3 ML VIAL SC PRN (17:39)
[2017-10-31] MEDS ORDERED: Albumin 25% 25 GM/100 ML BOT IVPB SCH (18:00)
[2017-10-31] MEDS ORDERED: Sodium Chloride 0.9% 500 ML IV SCH (18:15)
[2017-10-31] MEDS ORDERED: Hydrocortisone Sod Succ/PF 100 mg/2 ml Vial IVP SCH ×2 (20:00→23:00)
[2017-10-31] MEDS ORDERED: Atorvastatin Calcium 40 MG TAB PO SCH (21:00)
[2017-10-31] MEDS: Famotidine 20 MG TAB PO SCH (21:52)
[2017-10-31] MEDS: Amlodipine 10 MG TAB PO SCH (21:56)
[2017-11-01] MEDS: traMADol HCl 50 MG TAB PO PRN ×2 (00:14→18:13)
[2017-11-01] MEDS: Hydrocortisone Sod Succ/PF 100 mg/2 ml Vial IVP SCH ×3 (04:40→21:14)
[2017-11-01] MEDS: Acetaminophen 500 MG TAB PO SCH ×4 (04:40→21:15)
[2017-11-01 05:10] LABS: #Lymphocytes 0.7 thou/uL (1.20-3.40); #Monocytes 0.3 thou/uL (0.11-0.59); #Neutrophils 7.7 thou/uL (1.40-6.50); %Basophils 0.1 % (0.0-1.0); %Eosinophils 0.1 % (0.0-10.0); %Lymphocytes 7.6 % (21.0-51.0); %Monocytes 3.8 % (0.0-10.0); %Neutrophils 88.4 % (42.0-75.0); Hemoglobin 7.8 g/dL (14.0-18.0); Mean Corpuscular HGB CONC 32.1 g/dL (32.0-36.0); Mean Corpuscular Hemoglobin 29.4 pg (27.0-31.0); Mean Corpuscular Volume 91.5 fl (80.0-94.0); Mean Platelet Volume 9.4 fL (7.4-10.4); Platelet Count 249 thou/uL (130-400); RBC Distribution Width 14.9 % (11.5-14.5); Red Blood Cell (RBC) Count 2.66 mill/uL (4.70-6.10); White Blood Cell (WBC) Count 8.7 thou/uL (4.8-10.8)
[2017-11-01 05:31] LABS: Anion Gap 20 mmol/L (10-20); BUN (Urea Nitrogen) 59 mg/dL (8.4-25.7); Calc. Creatinine Clearance 8 mL/min (70-130); Calcium 8.5 mg/dL (7.8-10.44); Carbon Dioxide 23 mmol/L (23-31); Chloride 95 mmol/L (98-107); Estimated GFR-MDRD 9; Glucose 212 mg/dL (83-110); Potassium 5.1 mmol/L (3.5-5.1); Sodium 133 mmol/L (136-145)
[2017-11-01] MEDS ORDERED: Sodium Chloride 0.9% 1,000 ML IV SCH (07:45)
--- NOTE | 2017-11-01 09:00 | PRG ---
DATE OF SERVICE: 11/01/2017 RENAL MEDICINE SUBJECTIVE: Mr. Pryor is a 77-year-old black male who was admitted for right hip fracture, underwent right hip surgery, also initiated on dialysis due to uremic signs and symptoms. In the last week, he has been doing well. His hospital course has been marked by episodes of anxiety. He was also noted to be anemic and has received blood transfusion in the last several days. We have also initiated Ep ogen with this patient. This morning, he denies any complaints. Denies any chest pain or shortness of breath. Cardiology is following the patient. There might be a planned cardiac catheterization? PHYSICAL EXAMINATION: VITAL SIGNS: Blood pressure is 113/58, heart rate 90, respiratory rate 19, pulse ox 98%, temperature 98.6. GENERAL: Noted to be awake, sitting comfortable, not in distress. SKIN: Adequate turgor. HEENT: Slightly pale conjunctivae, anicteric sclerae. NECK: No neck mass, no carotid bruits, no JVD. CHEST: No deformities. LUNGS: Clear breath sounds. No wheezing, no crackles. HEART: Normal sinus rhythm. No murmur, no gallops, no rubs. ABDOMEN: Globular, soft, nontender, no masses. EXTREMITIES: No edema. MEDICATIONS: Medications of 11/01/2017 reviewed. LABORATORY DATA: Laboratories of 11/01/2017; white count 8.7, hemoglobin 7.8. Sodium 133, potassium 5.1, chloride 95, carbon dioxide 23, BUN 59, creatinine 7.5, glucose 212, calcium 8.5, cortisol 12.1 . ASSESSMENT AND PLAN: 1. Anemia - p.r.n. blood transfusion. Received 1 unit of packed RBC yesterday. Continuing weekly E pogen of 10,000 units subcutaneously every week. 2. End-stage renal disease/chronic renal failure, stable. No indication for any emergent hemodialys is. We will reschedule back this patient to his Wednesday, , and Wednesday regular dialysis reg imen. 3. Renal osteodystrophy - on calcitriol and Renvela. 4. Status post right hip fracture - status post right hip surgery [facility] Recheck basic metabolic panel and CBC in a.m.
[2017-11-01] MEDS: Ascorbic Acid 500 mg Chewable Tablet PO SCH ×2 (09:43→18:13)
[2017-11-01] MEDS: Ferrous Sulfate 325 MG TAB PO SCH ×2 (09:43→21:32)
[2017-11-01] MEDS: Calcitriol 0.25 MCG CAP PO SCH (09:43)
[2017-11-01] MEDS: Senokot S 8.6-50 MG TAB PO SCH ×2 (09:45→21:14)
[2017-11-01] MEDS: Sevelamer Carbonate 800 MG TAB PO SCH ×3 (09:45→20:14)
[2017-11-01] MEDS: traMADol HCl 50 MG TAB PO SCH ×2 (09:46→21:18)
[2017-11-01] MEDS: Carvedilol 3.125 MG TAB PO SCH ×2 (09:46→21:17)
[2017-11-01] MEDS: Ketotifen Fumarate 0.025% Ophth Soln 5 ml Bottle R EYE SCH ×2 (09:52→21:20)
[2017-11-01] MEDS: Insulin Detemir 100 UNITS/ML 5 UNITS in Pre-Filled Syringe 1 EACH SC SCH (11:43)
[2017-11-01] MEDS: Heparin 5,000 UNITS/ML VIAL SC SCH ×2 (15:58→21:19)
--- NOTE | 2017-11-01 18:06 | PDOC.CTH ---
Cardiology Progress Note - Subjective He had chest pain over the weekend and had a troponin drawn and it was elevated. He denies any chest pain currently no SOB. He is still tolerating dialysis. - Objective Vital Signs Temp Pulse Resp BP BP Pulse Ox 11/01/17 16:00 97.6 F 103 H 20 110/59 L 98 11/01/17 12:00 98.6 F 102 H 20 121/61 97 11/01/17 07:40 98.6 F 98 19 98 11/01/17 07:35 98.6 F 98 19 113/58 L 98 Admit Weight 170 lb 1.6 oz Weight 160 lb 3.2 oz 10/31/17 11/01/17 11/02/17 06:59 06:59 06:59 Intake Total 1364 1120 Output Total 250 Balance 1114 1120 - Physical Examination General/Neuro: alert & oriented x3, NAD Neck: no JVD present Lungs: CTA, unlabored respirations Heart: RRR Abdomen: NT/ND Extremities: + edema B (1+) - Telemetry Telemetry Rhythm: NSR - Labs Result Diagrams: 11/01/17 04:47 11/01/17 04:47 Troponin/CKMB CK-MB (CK-2) 5.3 ng/mL (0-6.6) 10/31/17 12:02 Troponin I 14.112 ng/mL (< 0.028) H* 10/31/17 12:02 - Assessment/Plan 1. Hip fracture, s/p repair. 2. Normal LV function with apical hypokinesis. 3. NSTEMI, new since admission. 4. CKD stage 5 now ESRD, started HD. PLAN: - Currently chest pain free. - We spoke about risks and benefits of LHC risks included but not limited to stroke, KS, bleeding and need for blood transfusion, limb loss, organ loss, need for emergent bypass, need for emergent vascular surgery. He understands and verbalizes understanding of this and agrees to proceed. I spoke with his daughter who is a nurse in [place] and she would also like for us to proceed. - Once stable and he remains on HD he will need a LHC to risk stratify his CAD. He will have this done in [place]. - Will sign off. Please call with any questions.
[2017-11-01] MEDS: Insulin Regular 300 UNITS/3 ML VIAL SC PRN ×2 (18:09→21:28)
[2017-11-01] MEDS ORDERED: Communication Order-Pharmacy FS SCH (18:15)
--- NOTE | 2017-11-01 18:39 | PRG ---
DATE OF SERVICE: 11/01/2017 ATTENDING PHYSICIAN: Dr. Kevin Thompson. SUBJECTIVE: Mr. Pryor is a 77-year-old male who was admitted for right hip fracture in the last week he did on postop day #8. Recently, he has had an abnormal ECG with elevated troponin, suggesting rec ent myocardial infarction. Dr. Gallardo was consulted who feels that they most likely happened perio peratively. The patient was given albumin and fluids yesterday. He also got 1 unit of PRBCs overnig ht and was started on hydrocortisone. This morning on exam, the patient's vital signs have improved to a blood pressure of 113/58. The patient continues to report feeling okay. The nausea he felt yes terday is gone. He voices no other complaints. OBJECTIVE: VITAL SIGNS: BP 113/58, pulse 98, temperature 98.6, respirations 19, O2 sat 98% on room air. GENERAL: Patient is an elderly adult male. He is sitting on the bed, in the chair. He is in no acu te distress. HEENT: Normocephalic, atraumatic. LUNGS: Breath sounds clear to auscultation bilaterally with normal effort. CARDIOVASCULAR: He is borderline tachycardic. He has no murmurs, gallops or rubs. ABDOMEN: Soft, nontender, nondistended. EXTREMITIES: Patient is neurovascularly intact x4. NEUROLOGIC: The patient is gross alert and oriented this morning. He was dozing when we entered the patient's room. He is easily arousable. He is GCS of 15. He has no focal deficits. LABORATORY DATA: Hematology: WBC is 8.7, hemoglobin 7.8, hematocrit 24.3, platelets 249. Chemistry : Sodium 133, potassium 5.1, chloride 95, bicarbonate 23, BUN 59, creatinine 7.50, glucose 212, calc ium 8.5, overnight serum cortisol 12.10. IMAGING: Transthoracic echocardiogram taken yesterday. Result is still pending. ASSESSMENT: 1. Status post ground level fall. 2. Right hip fracture, status post open reduction and internal fixation, postop day #8. 3. End-stage renal disease, on hemodialysis. 4. Cardiac history including ST elevation myocardial infarction with secondary heart block as well a s congestive heart failure. The patient appears to have had a recent myocardial infarction while in the hospital. The exact date is unclear. 5. Anemia. PLAN: 1. The patient will go to a cardiac catheterization lab tomorrow. In the meantime, we will start hi m on a heparin t.i.d. for DVT prophylaxis. The patient's low blood pressure has also been complicate d by volume loss due to diarrhea. We will discontinue MiraLax, lactulose and daily suppository. The patient's blood pressure has been in a normotensive range this morning. We will discontinue his flu ids as well. We will continue to monitor his fluid status closely. 2. Continue hemodialysis 3 days a week. The patient followed by Dr. Tilley. I appreciate recommendati ons. 3. Continue hydrocortisone 50 mg q.8 hours. 4. Case management following for discharge planning. Dr. Thompson spoke with the insurance physician t his morning, and it appears that rehabilitation has been approved. Patient will discharge to rehab a fter cardiac catheterization when medically appropriate. This patient was seen and examined along with Dr. Kevin Thompson, who agrees with the assessment and p
[2017-11-01] MEDS: Famotidine 20 MG TAB PO SCH (21:00)
[2017-11-01] MEDS: Atorvastatin Calcium 20 MG TAB PO SCH (21:15)
[2017-11-01] MEDS: Amlodipine 10 MG TAB PO SCH (21:16)
[2017-11-02] MEDS: Hydrocortisone Sod Succ/PF 100 mg/2 ml Vial IVP SCH ×3 (06:29→20:50)
[2017-11-02] MEDS: Acetaminophen 500 MG TAB PO SCH ×4 (06:35→20:50)
[2017-11-02 06:40] LABS: #Lymphocytes 0.8 thou/uL (1.20-3.40); #Monocytes 0.5 thou/uL (0.11-0.59); #Neutrophils 8.3 thou/uL (1.40-6.50); %Basophils 0.2 % (0.0-1.0); %Eosinophils 0.1 % (0.0-10.0); %Lymphocytes 8.1 % (21.0-51.0); %Monocytes 5.6 % (0.0-10.0); Hemoglobin 7.9 g/dL (14.0-18.0); Mean Corpuscular HGB CONC 31.5 g/dL (32.0-36.0); Mean Corpuscular Hemoglobin 28.8 pg (27.0-31.0); Mean Corpuscular Volume 91.5 fl (80.0-94.0); Mean Platelet Volume 9.3 fL (7.4-10.4); Platelet Count 295 thou/uL (130-400); RBC Distribution Width 15.1 % (11.5-14.5); Red Blood Cell (RBC) Count 2.73 mill/uL (4.70-6.10); White Blood Cell (WBC) Count 9.7 thou/uL (4.8-10.8)
[2017-11-02] MEDS ORDERED: Lidocaine 1% (PF) 30 ML VIAL ONE (06:58)
[2017-11-02 06:59] LABS: Anion Gap 20 mmol/L (10-20); BUN (Urea Nitrogen) 83 mg/dL (8.4-25.7); Calc. Creatinine Clearance 7 mL/min (70-130); Calcium 8.6 mg/dL (7.8-10.44); Carbon Dioxide 23 mmol/L (23-31); Chloride 92 mmol/L (98-107); Estimated GFR-MDRD 7; Glucose 299 mg/dL (83-110); Magnesium 2.2 mg/dL (1.6-2.6); Potassium 5.5 mmol/L (3.5-5.1); Sodium 129 mmol/L (136-145)
[2017-11-02] MEDS ORDERED: Fentanyl 250 MCG/5 ML VIAL ONE (07:27)
[2017-11-02] MEDS ORDERED: Midazolam HCl 2 mg/2 ml Vial ONE (07:27)
--- NOTE | 2017-11-02 08:49 | PRG ---
DATE OF SERVICE: 11/02/2017 SUBJECTIVE: Mr. Pryor is a 77-year-old black male with ESRD. He initially was admitted for right hip fracture and underwent right hip surgery. He was also initiated on dialysis. Today, he underwent a cardiac catheterization. The official results are pending. He has no new complaints. He was noted to have a slightly lower blood pressure during the said procedure. No complaints of chest pain or s hortness of breath. PHYSICAL EXAMINATION: VITAL SIGNS: Blood pressure is 103/57, heart rate 90, respiratory rate 18, temperature 97.5. GENERAL: Awake, supine, comfortable, not in distress. SKIN: Adequate turgor. HEENT: Pinkish conjunctivae, anicteric sclerae. NECK: No neck mass, no carotid bruits, no JVD. CHEST: No deformities. LUNGS: Clear breath sounds, no wheezing, no crackles. HEART: Normal sinus rhythm. No murmur, no gallops, no rubs. ABDOMEN: Globular, soft, nontender. No masses. EXTREMITIES: No edema. MEDICATIONS: Of 11/02/2017 was reviewed. LABORATORY DATA: Of 11/02/2017, white count 9.7, hemoglobin 7.9. Sodium 129, potassium 5.5, chlorid e 92, carbon dioxide 23, BUN 83, creatinine 2.03, glucose 299, calcium 8.6, phosphorus is 7. ASSESSMENT AND PLAN: 1. End-stage renal disease/chronic renal failure, hemodialysis for 3 hours today. Minimal fluid rem oval due to his decreased blood pressure. P.r.n., normal saline boluses as needed. 2. Anemia, on weekly Epogen, p.r.n. blood transfusion. 3. Coronary artery disease - the patient is status post cardiac catheterization. Cardiology is foll owing. Official results of the cardiac catheterization are pending. 4. Hyperphosphatemia, currently on Renvela at 800 mg 1 tab t.i.d. with meals. Recheck base met and CBC in a.m. Overall, prognosis remains guarded.
[2017-11-02] MEDS ORDERED: Heparin 5,000 UNITS/ML VIAL SC SCH (09:00)
[2017-11-02] MEDS ORDERED: Iopamidol 370 76% 100 ML VIAL ONE (09:46)
--- NOTE | 2017-11-02 11:45 | PRG-2 ---
DATE OF SERVICE: 11/02/2017 ATTENDING PHYSICIAN: Dr. Kevin Thompson HISTORY OF PRESENT ILLNESS: Mr. Pryor is a 77-year-old male who was admitted to the [facility] to a ground level fall on 10/22/2017. He sustained a right intertrochanteric hip fracture. He is postop day #9 from repair of this hip fracture. The patient was initiated on hemodialysis prior to t his repair. More recently, the patient had an NSTEMI and is status post cardiac catheterization this morning by Dr. Mccullough. The patient reports that he is feeling well aside from shortness of breath when he is lying flat. He also reports some right leg pain, but otherwise denies any chest pain. OBJECTIVE: VITAL SIGNS: Temperature 97.5, pulse 90, respiratory rate 18, O2 sat 95% on room air, blood pressure 103/57. GENERAL: Well-developed elderly adult male lying flat in bed. The patient was seen in dialysis, in no acute distress. HEENT: Normocephalic, atraumatic. Moist mucous membranes. LUNGS: No accessory muscles of respiration, clear to auscultation bilaterally. CARDIOVASCULAR: Regular rate and rhythm. No murmurs, gallops or rubs. ABDOMEN: Nondistended. Normoactive bowel sounds, soft, nontender. EXTREMITIES: Neurovascularly intact x4, 1+ pitting edema bilateral lower extremities to the mid sapp . NEUROLOGIC: GCS of 15. No focal deficits. Alert, awake, and oriented x3. LABORATORY DATA: Sodium 129, potassium 5.5, BUN 83, creatinine 9.03, GFR 7, glucose 299, calcium 8.6 , phosphorus 7.0, magnesium 2.2, white blood cell count 9.7, hemoglobin 7.9, hematocrit 25.0, platele ts 295. Procedure report from left heart catheterization showed an EF of 15-20% as well as 95% stenosis in th e proximal LAD, a 90% distal left circumflex, and 80% mid to distal RCA. ASSESSMENT: 1. Status post ground level fall. 2. Right intertrochanteric hip fracture status post ORIF, postop day #9. 3. End-stage renal disease on hemodialysis. 4. Recent [id number] elevation myocardial infarction while in the hospital. Exact date is uncle ar. 5. Severe coronary artery disease. 6. Anemia of chronic kidney disease. 7. Diabetes mellitus type 2. PLAN: 1. We will await official recommendations from Dr. Mccullough regarding the patient's cardiac catheteriz ation. We will have a CT Surgery to evaluate whether the patient is a candidate for CABG versus lerner sfer to higher level of care for PCI per Cardiology's recommendations. 2. Continue hemodialysis per Dr. Tilley's recommendations. 3. Continue hydrocortisone 50 mg IV q.8 hours. 4. Heparin for VTE prophylaxis. 5. We will increase Levemir to 5 mg b.i.d. for elevated glucose. 6. Continue working with PT and OT. Dr. Thompson saw and examined the patient and formulated the plan with me.
[2017-11-02] MEDS: traMADol HCl 50 MG TAB PO PRN (11:52)
--- NOTE | 2017-11-02 11:54 | CON ---
DATE OF CONSULTATION: 11/02/2017 REQUESTING PHYSICIAN: Dr. Mccullough REASON FOR CONSULTATION: Coronary artery disease. HISTORY OF PRESENT ILLNESS: The patient is a 77-year-old hypertensive diabetic man with renal insuff iciency who has been resistant to initiating hemodialysis for quite some time. He reportedly has had at least laboratory evidence to suggest myocardial infarctions in the past and his daughter who is a nurse in the [place] area describes the patient having had admissions with congestive heart failure, but to date had not undergone any invasive cardiac evaluation because of his renal insufficiency and his unwillingness to start dialysis. He was here on an outing with his family and fell and broke hi s right hip which required repair. He did not have any chest pain, pressure, tightness or shortness of breath, but in light of history of recent non-ST elevation myocardial infarction, he underwent a c ardiac evaluation, culminating in cardiac catheterization that demonstrated severe 3-vessel coronary disease. PAST MEDICAL HISTORY: Diabetes, hypertension, hypercholesterolemia and renal insufficiency. He has just this hospitalization started hemodialysis. HOME MEDICATIONS: Lantus insulin 5 units a day, baby aspirin a day, Plavix 75 mg a day, Norvasc 10 m g a day, doxazosin 4 mg a day, hydralazine 100 mg t.i.d., Coreg 3.125 mg b.i.d., sodium bicarbonate 6 50 mg a day, Lipitor 40 mg a day, Lasix 40 mg b.i.d. ALLERGIES: He has no known allergies. SOCIAL HISTORY: He has a distant history of smoking, having quit about 35 years ago. REVIEW OF SYSTEMS: Notable for his gradual debilitation. PHYSICAL EXAMINATION: GENERAL: He is an elderly appearing man who is currently on dialysis through what appears to represe nt a tunneled right IJ catheter. VITAL SIGNS: Temperature is 97.5, heart rate is 90, blood pressure 103/57. NECK: No JVD, no carotid bruits. LUNGS: Chest is clear to auscultation. CARDIOVASCULAR: He has a regular rate and rhythm. ABDOMEN: Soft, nontender. I have difficulty palpating his radial pulses. He has a sandbag in his r ight groin. EXTREMITIES: He has 3-4+ edema in his ankles, perhaps a little bit worse on his right side which is his hip fracture side. LABORATORY DATA: Shows hemoglobin is currently running in the mid to high 7s, platelet count is in t he 2-300,000 range. Potassium 5-1/2, creatinine 9, INR 1.1. His chest x-ray shows cardiomegaly, aortic knob calcification, prominent lung markings with some sugg estion of edema. His cardiac catheterization shows markedly decreased LV function with an EF by my e stimate of around 20% with an LV pressure of 89/10 and EDP of 24, aortic pressure was 91/39 with a me an of 61. He has a right dominant system with extensive arborization particularly in the posterolate ral distribution. He has diffuse luminal irregularity with some scattered focal disease in the right coronary proximally measuring probably around 40-50% more distally, perhaps 60 or even 70%. He has some tapering of his left main, his LAD is diffusely diseased and tapers distally much of its length, its residual lumen is really only about 1 mm, although there were some islands of larger caliber. H e has a focal lesion in his circumflex system. He has extensive calcification throughout his coronar y tree. It is very heavy proximally, but one can see hints of calcification throughout his LAD all t he way out to the apex. IMPRESSION AND RECOMMENDATIONS: Anatomically even if he had a good ventricle be a problematic revasc ularization candidate because of the diffuse disease in his LAD and the calcifications throughout his coronaries. Hypothetically on dialysis with medical management he may have some improvement of his LV function, but that still does not address the anatomic challenges and I would recommend medical ma alex at least at this point.
[2017-11-02] MEDS: Sevelamer Carbonate 800 MG TAB PO SCH ×3 (12:02→18:00)
[2017-11-02] MEDS: traMADol HCl 50 MG TAB PO SCH ×2 (12:02→20:51)
[2017-11-02] MEDS: Ascorbic Acid 500 mg Chewable Tablet PO SCH ×2 (12:03→15:43)
[2017-11-02] MEDS: Senokot S 8.6-50 MG TAB PO SCH ×2 (13:20→20:52)
[2017-11-02] MEDS: Carvedilol 3.125 MG TAB PO SCH ×2 (13:21→20:52)
[2017-11-02] MEDS: Ferrous Sulfate 325 MG TAB PO SCH ×2 (13:21→20:51)
[2017-11-02] MEDS: Calcitriol 0.25 MCG CAP PO SCH (13:21)
[2017-11-02] MEDS: Insulin Detemir 100 UNITS/ML 5 UNITS in Pre-Filled Syringe 1 EACH SC SCH (13:23)
[2017-11-02] MEDS: Ketotifen Fumarate 0.025% Ophth Soln 5 ml Bottle R EYE SCH ×2 (13:24→21:06)
[2017-11-02] MEDS: Famotidine 20 MG TAB PO SCH (20:51)
[2017-11-02] MEDS: Atorvastatin Calcium 20 MG TAB PO SCH (20:51)
[2017-11-02] MEDS: Amlodipine 10 MG TAB PO SCH (20:52)
[2017-11-02] MEDS: Heparin 5,000 UNITS/ML VIAL SC SCH (20:53)
[2017-11-02] MEDS: INSULIN DETEMIR SC SCH (21:01)
[2017-11-02] MEDS: Insulin Regular 300 UNITS/3 ML VIAL SC PRN (21:02)
--- NOTE | 2017-11-03 03:07 | PRG ---
DATE OF SERVICE: 11/02/2017 SUBJECTIVE: The patient is status post ground level fall, which he underwent ORIF of his hip fractur e. The patient has recently sustained a NSTEMI, which culminated in undergoing a cardiac catheteriza tion this morning, which showed severe 3-vessel disease. Patient then subsequently underwent evaluat ion by the cardiovascular surgeon whose recommendation was due to the patient's severe LV dysfunction . He was not a very good surgical candidate at this time. Please see his consult for his recommenda tions. Tonight, the patient is resting comfortably in bed with his grandson and granddaughter at bed side. PHYSICAL EXAMINATION: GENERAL: The patient is awake, alert, and oriented x3, communicative and appropriate. VITAL SIGNS: Temperature is 97.8, heart rate 73, blood pressure is 105/62, oxygen saturation, respir ations are 17, oxygen saturation is 93% on room air. LUNGS: Clear to auscultation. HEART: Regular rate and rhythm. ABDOMEN: Soft and nontender. EXTREMITIES: Shows 3-4+ pitting edema in his lower extremities, which the patient states is his base line. ASSESSMENT AND PLAN: 1. Status post ground level fall. 2. Status post ORIF right hip fracture. 3. Status post NSTEMI. 4. Status post cardiac catheterization. Plan will be medical management per Cardiology and Cardiovascular Surgery and continued supportive ca re per the primary team and Orthopedics with placement decision to be made according to the patient a nd family. The patient has been accepted into rehabilitation and they are ready to take him, this wi ll be relayed to the primary team in the morning for the final decision.
[2017-11-03] MEDS: Hydrocortisone Sod Succ/PF 100 mg/2 ml Vial IVP SCH (03:12)
[2017-11-03] MEDS: Acetaminophen 500 MG TAB PO SCH ×5 (03:12→22:04)
[2017-11-03] MEDS: Insulin Regular 300 UNITS/3 ML VIAL SC PRN ×3 (07:09→17:45)
--- NOTE | 2017-11-03 08:08 | PRG ---
DATE OF SERVICE: 11/03/2017 SUBJECTIVE: The patient states he is doing well this morning. He underwent cardiac catheterization yesterday morning which showed severe 3-vessel disease. The patient then was evaluated by the cardiovascular surgeon due to severe LV dysfunction, but found to not be a good surgical candidate at this time. The patient currently denies any pain. States his hip is overall doing well. Has been mobilizing with PT. No new complaints related to the hip. PHYSICAL EXAMINATION: VITAL SIGNS: Temperature 98.1, pulse of 99, respiratory rate of 15, blood pressure 109/56. GENERAL: The patient is awake, alert, and oriented x3. He is in no acute distress. Family at bedside. He is appropriate with exam findings. EXTREMITIES: Right hip shows levi intact to surgical site. Wound edges are well approximated. No drainage, dehiscence, or surrounding erythema is visible. Distal neurovascular status is intact. There does appear to be 3+ pitting edema in bilateral lower extremities. ASSESSMENT: Status post ground level fall with long TFN to the right hip for intertrochanteric/subtrochanteric fracture. The patient will remain 50% partial weightbearing to the right lower extremity with a walker. Medical management per Cardiology and Cardiovascular Surgery. The patient okay to discharge to rehabilitation per Orthopedic Service. He will follow up in the Orthopedic Trauma Clinic in 2-3 weeks from surgery for reevaluation. SALAZAR
[2017-11-03] MEDS: Ascorbic Acid 500 mg Chewable Tablet PO SCH ×2 (09:40→17:43)
[2017-11-03] MEDS: Sevelamer Carbonate 800 MG TAB PO SCH ×3 (09:41→17:43)
[2017-11-03] MEDS: Insulin Detemir 100 UNITS/ML 5 UNITS in Pre-Filled Syringe 1 EACH SC SCH (09:41)
[2017-11-03] MEDS: Calcitriol 0.25 MCG CAP PO SCH (09:42)
[2017-11-03] MEDS: Carvedilol 3.125 MG TAB PO SCH ×2 (09:42→22:06)
[2017-11-03] MEDS: Ferrous Sulfate 325 MG TAB PO SCH ×2 (09:42→22:07)
[2017-11-03] MEDS: Senokot S 8.6-50 MG TAB PO SCH (09:43)
[2017-11-03] MEDS: Ketotifen Fumarate 0.025% Ophth Soln 5 ml Bottle R EYE SCH ×2 (09:43→22:30)
[2017-11-03] MEDS: Heparin 5,000 UNITS/ML VIAL SC SCH ×2 (09:43→22:05)
[2017-11-03] MEDS: traMADol HCl 50 MG TAB PO SCH ×2 (09:44→22:05)
--- NOTE | 2017-11-03 11:47 | PRG-2 ---
DATE OF SERVICE: 11/03/2017 ATTENDING PHYSICIAN: Dr. Kevin Thompson. SUBJECTIVE: Mr. Pryor is a 77-year-old male, who was admitted to the Trauma Service due to ground-lev el fall on 10/22/2017. Sustained a right intertrochanteric hip fracture. The patient is postop day #10 from repair of his hip fracture. He had been initiated on hemodialysis prior to this repair. Th e patient more recently had an NSTEMI during his hospitalization and had a cardiac catheterization ye day by Dr. Mccullough. The patient reports that he has had some pressure-like substernal chest pain while lying in bed that resolves on its own. However, otherwise has no complaints. The patient repo rts that his right hip pain is well controlled with his pain medications. The patient has been worki ng with physical therapy. The patient is tolerating his diet. OBJECTIVE: VITAL SIGNS: Temperature 97.8, pulse 97, respiratory rate 16, O2 sat 93% on room air, blood pressure 106/61. GENERAL: A well-developed elderly male, sitting up in bed, in no acute distress. HEENT: Normocephalic, atraumatic. Moist mucous membranes. RESPIRATORY: No use of accessory muscles of respiration. Clear to auscultation bilaterally. CARDIOVASCULAR: Regular rate and rhythm. No murmurs, gallops, or rubs. ABDOMEN: Nondistended, soft, nontender. EXTREMITIES: Neurovascularly intact x4. A 2+ pitting edema in the bilateral lower extremities to th e mid sapp. NEUROLOGIC: GCS of 15. No focal deficits. Awake, alert, and oriented x3. LABORATORY DATA: Point of care glucose has ranged from 204-412 in the past 24 hours. ASSESSMENT: 1. Status post ground-level fall. 2. Right intertrochanteric hip fracture, status post open reduction and internal fixation, postopera tive day #10. 3. End-stage renal disease, on hemodialysis. 4. Recent [id number] myocardial infarction while in the hospital, exact date is unclear. 5. Severe coronary artery disease. 6. Anemia of chronic kidney disease. 7. Diabetes mellitus, type 2. PLAN: 1. CV Surgery evaluated the patient and recommended that the patient was not a good candidate for a CABG at this time and recommended medical management. I discussed the case with Dr. Mccullough, who divya mmends that the patient be transferred to [facility] to be seen at a higher level of care facility, they can provide higher level of care where PCI can be done and Dr. Mccullough is in the process of arranging for transfer with the accepting clerk supervisor. The patient would likely benefit from improvement from a cardiac standpoint prior to initiating intensive rehabilitation for his hip due to his significant disease. We will continue medical management in the meantime per Cardiology's recommendations. 2. Continue hemodialysis per Dr. Tilley's recommendations. 3. Discontinue hydrocortisone as patient's blood pressures have stabilized. 4. Levemir 5 mg b.i.d. and mild sliding scale insulin. 5. Continue working with PT and OT for mobilization. 6. Heparin for VTE prophylaxis. Dr. Thompson saw and examined the patient and formulated the plan with me.
[2017-11-03 13:59] VITALS: BMI 24.7
--- NOTE | 2017-11-03 16:53 | PDOC.CTH ---
Cardiology Progress Note - Subjective He is doing well. his right groin is without issues. - Objective Vital Signs Temp Pulse Pulse Pulse Resp BP BP 11/03/17 16:00 98.0 F 96 16 11/03/17 13:25 101 H 96 109/59 L 103/59 L 11/03/17 12:45 97.7 F 87 16 11/03/17 09:20 102 H 99 116/60 110/68 11/03/17 07:59 97.8 F 97 16 BP BP Pulse Ox Pulse Ox Pulse Ox 11/03/17 16:00 111/63 100 11/03/17 13:25 99 99 11/03/17 12:45 96/53 L 96 11/03/17 09:20 99 99 11/03/17 07:59 106/61 93 L Admit Weight 170 lb 1.6 oz Weight 162 lb 12.8 oz 11/02/17 11/03/17 11/04/17 06:59 06:59 06:59 Intake Total 360 Balance 360 - Physical Examination General/Neuro: alert & oriented x3, NAD Neck: no JVD present Lungs: CTA, unlabored respirations Heart: RRR Abdomen: NT/ND Extremities: other: (no edema.) - Telemetry Telemetry Rhythm: NSR - Labs Result Diagrams: 11/02/17 06:15 11/02/17 06:15 Troponin/CKMB CK-MB (CK-2) 5.3 ng/mL (0-6.6) 10/31/17 12:02 Troponin I 14.112 ng/mL (< 0.028) H* 10/31/17 12:02 - Assessment/Plan 1. Hip fracture, s/p repair. 2. Severe ischyemic CM EF at 10-15% 3. NSTEMI 4. CKD stage 5 now ESRD, started HD. PLAN: - Currently chest pain free. - CT surgery evaluated and do not think he is a candidate for open heart surgery given his anatomy and his calcified vessels. - His only options would be to continue medical therapy or to try to transfer him to a higher level facility and attempt a complex PCI to his LAD with rotational atherectomy and most likely Impella support. He has PVD on both legs so this may also be a challenge. I spoke with his daughter and she is in agreement. Dr. Ordoñez at [facility] in [place] has accepted transfer for possible high risk PCI.
[2017-11-03] MEDS: traMADol HCl 50 MG TAB PO PRN (17:43)
[2017-11-03] MEDS: Amlodipine 10 MG TAB PO SCH (22:03)
[2017-11-03] MEDS: Atorvastatin Calcium 20 MG TAB PO SCH (22:06)
[2017-11-03] MEDS: Famotidine 20 MG TAB PO SCH (22:07)
[2017-11-03] MEDS: INSULIN DETEMIR SC SCH (22:09)
[2017-11-03 22:15] VITALS: BP 101/55
[2017-11-04] MEDS: Lorazepam 0.5 MG TAB PO PRN (00:13)
[2017-11-04 01:02] VITALS: TEMP 97.8
--- NOTE | 2017-11-04 02:49 | DIS ---
ADMISSION DIAGNOSES: 1. Status post ground level fall. 2. Right intertrochanteric hip fracture. 3. History of end-stage renal disease, currently not on dialysis upon admission. 4. Recent history of ST elevation myocardial infarction and recent diagnosis of second degree heart block. 5. Acute traumatic pain. 6. Electrolyte imbalance. DISCHARGE DIAGNOSES: 1. Status post ground level fall. 2. Status post right intertrochanteric hip fracture. 3. Status post open reduction and internal fixation of right intertrochanteric hip fracture. 4. End-stage renal disease, currently on dialysis. 5. Acute non-ST elevated myocardial infarction with significant decline of LV function. CONSULTATIONS: Orthopedic, Dr. Dimas; Cardiology, Dr. Mccullough; Nephrology, Dr. Tilley. PROCEDURES: 1. Dialysis catheter placement. 2. Right hip TFN nail placement, long. 3. Left IJ triple lumen catheter, right IJ cuffed tunnel hemodialysis catheter placement. 4. Cardiac catheterization and angiography. SUMMARY: The patient is a 77-year-old -[place] man who presented to the emergency department status post ground level fall, which he sustained a right hip fracture. The patient had a significa nt comorbidities to include chronic end-stage renal disease which he had declined hemodialysis previo usly during this hospital admission, he changed his mind and decided to undergo hemodialysis. The brenda stuart was cleared by Cardiology to undergo his orthopedic procedure which he tolerated well while her e and awaiting his rehabilitation. The patient had experienced some nonspecific chest pain that reso lved quickly and then resumed at which time troponin was drawn and was shown to be markedly elevated. At which time, the patient would be taken to the laboratory technology teacher to undergo his cardiac catheterization. These results showed severe three-vessel disease that was noted on his echo that he had a significant decline in his LV function. The patient also underwent Cardiovascular Surgery evaluation which due to his extensive disease and other comorbidities to include vascular disease. It was felt that he wa s not a good candidate for a CABG. After discussion with the family, it was decided the patient woul d be transferred to a higher level of care to undergo in high risk PCI, the patient would be eventual ly transferred to [facility] in [place] to undergo this procedure. At time of discharge, the patient was tolerating a diet. He was awake, alert, responsive, and appropriate. The patient was ab le to ambulate with assistance and states that his pain was controlled. The patient will follow up w immanuel Tilley, per his instructions once the patient returns to our area to continue his hemodialysis, he will also need to follow up with Cardiology this decision will be made whether he follows up in [facility] with the rn document improvement specialist down there or returns to follow up with Dr. Mccullough. The patient will als o be required to follow up with Dr. Dimas 2 to 3 weeks postoperatively and he may follow [facility] with [facility] as needed.
--- NOTE | 2017-11-04 14:38 | EKG ---
Test Reason : Blood Pressure : / mmHG Vent. Rate : 058 BPM Atrial Rate : 091 BPM P-R Int : 000 ms QRS Dur : 094 ms QT Int : 448 ms P-R-T Axes : 042 006 164 degrees QTc Int : 439 ms Sinus rhythm with 2nd degree A-V block (Mobitz I) Anteroseptal infarct , age undetermined T wave abnormality, consider lateral ischemia Abnormal ECG Confirmed by DONNA CARTAGENA, MARLENI Sorenson ([id number]), primer expeditor and drier SHERRIE ARGUETA ([id number]) on 11/04/2017 2:38:16 PM Referred By: Confirmed By:MARLENI THOMPSON MD
--- NOTE | 2017-11-05 15:30 | ADD-DIS ---
ADDENDUM: (CORRECTION) Original discharge summary was dictated on 11/03/2017. "Again, the correction should be discharge date 11/03/2017 when the patient actually was discharged f rom the facility.
--- NOTE | 2017-11-10 23:02 | EKG ---
Test Reason : STAT Blood Pressure : / mmHG Vent. Rate : 129 BPM Atrial Rate : 129 BPM P-R Int : 166 ms QRS Dur : 106 ms QT Int : 314 ms P-R-T Axes : 040 029 143 degrees QTc Int : 460 ms Sinus tachycardia Possible Left atrial enlargement Anteroseptal infarct (cited on or before 22-OCT-2017) T wave abnormality, consider lateral ischemia * ACUTE AL * Abnormal ECG When compared with ECG of 22-OCT-2017 14:26, (Unconfirmed) Significant changes have occurred Confirmed by Kaleb ALMEIDA ([id number]) on 11/10/2017 11:02:24 PM Referred By: ROGELIO Confirmed By:Kaleb ALMEIDA
--- NOTE | 2017-11-10 23:04 | EKG ---
Test Reason : Blood Pressure : / mmHG Vent. Rate : 103 BPM Atrial Rate : 103 BPM P-R Int : 192 ms QRS Dur : 100 ms QT Int : 370 ms P-R-T Axes : 053 046 154 degrees QTc Int : 484 ms Sinus tachycardia Possible Left atrial enlargement Anteroseptal infarct (cited on or before 22-OCT-2017) Abnormal ECG When compared with ECG of 30-OCT-2017 11:09, (Unconfirmed) Questionable change in initial forces of Anterior leads ST less depressed in Lateral leads Confirmed by Kaleb ALMEIDA ([id number]) on 11/10/2017 11:03:34 PM Referred By: JASVIR Confirmed By:Kaleb ALMEIDA
== END 2017-11-04 00:21 | disposition short-term general hospital (02) | DRG 480 ==
LOC: ERS 13:53 → 2NO 18:36
PROVIDERS: ADMIT Surgery; ATTEND Surgery
PROC: 06HN33Z Insertion of Infusion Device into Left Femoral Vein, Percutaneous Approach (ICD-10-PCS; 2017-10-22)
PROC: 5A1D70Z Performance of Urinary Filtration, Intermittent, Less than 6 Hours Per Day (ICD-10-PCS; 2017-10-22)
PROC: 5A1D70Z Performance of Urinary Filtration, Intermittent, Less than 6 Hours Per Day (ICD-10-PCS; 2017-10-23)
PROC: 0QS636Z Reposition Right Upper Femur with Intramedullary Internal Fixation Device, Percutaneous Approach (ICD-10-PCS; principal; 2017-10-24)
PROC: 0QS634Z Reposition Right Upper Femur with Internal Fixation Device, Percutaneous Approach (ICD-10-PCS; 2017-10-24)
PROC: 5A1D70Z Performance of Urinary Filtration, Intermittent, Less than 6 Hours Per Day (ICD-10-PCS; 2017-10-24)
PROC: 30233N1 Transfusion of Nonautologous Red Blood Cells into Peripheral Vein, Percutaneous Approach (ICD-10-PCS; 2017-10-26)
PROC: 5A1D70Z Performance of Urinary Filtration, Intermittent, Less than 6 Hours Per Day (ICD-10-PCS; 2017-10-26)
PROC: 03170JD Bypass Right Brachial Artery to Upper Arm Vein with Synthetic Substitute, Open Approach (ICD-10-PCS; 2017-10-27)
PROC: 02HV33Z Insertion of Infusion Device into Superior Vena Cava, Percutaneous Approach (ICD-10-PCS; 2017-10-27)
PROC: 02HV33Z Insertion of Infusion Device into Superior Vena Cava, Percutaneous Approach (ICD-10-PCS; 2017-10-27)
PROC: 5A1D70Z Performance of Urinary Filtration, Intermittent, Less than 6 Hours Per Day (ICD-10-PCS; 2017-10-28)
PROC: 5A1D70Z Performance of Urinary Filtration, Intermittent, Less than 6 Hours Per Day (ICD-10-PCS; 2017-10-30)
PROC: 4A023N7 Measurement of Cardiac Sampling and Pressure, Left Heart, Percutaneous Approach (ICD-10-PCS; 2017-11-02)
PROC: B2111ZZ Fluoroscopy of Multiple Coronary Arteries using Low Osmolar Contrast (ICD-10-PCS; 2017-11-02)
PROC: B2151ZZ Fluoroscopy of Left Heart using Low Osmolar Contrast (ICD-10-PCS; 2017-11-02)
PROC: 5A1D70Z Performance of Urinary Filtration, Intermittent, Less than 6 Hours Per Day (ICD-10-PCS; 2017-11-02)
DX: N25.81 Secondary hyperparathyroidism of renal origin; I21.3 ST elevation (STEMI) myocardial infarction of unspecified site; I13.2 Hypertensive heart and chronic kidney disease with heart failure and with stage 5 chronic kidney disease, or end stage renal disease; Z79.02 Long term (current) use of antithrombotics/antiplatelets; E11.22 Type 2 diabetes mellitus with diabetic chronic kidney disease; F41.9 Anxiety disorder, unspecified; D63.1 Anemia in chronic kidney disease; E83.39 Other disorders of phosphorus metabolism; E11.21 Type 2 diabetes mellitus with diabetic nephropathy; S72.21XA Displaced subtrochanteric fracture of right femur, initial encounter for closed fracture; N18.6 End stage renal disease; Z79.82 Long term (current) use of aspirin; I22.2 Subsequent non-ST elevation (NSTEMI) myocardial infarction; Z79.899 Other long term (current) drug therapy; E87.5 Hyperkalemia; W01.0XXA Fall on same level from slipping, tripping and stumbling without subsequent striking against object, initial encounter; N25.0 Renal osteodystrophy; I50.9 Heart failure, unspecified; I25.10 Atherosclerotic heart disease of native coronary artery without angina pectoris; S72.141A Displaced intertrochanteric fracture of right femur, initial encounter for closed fracture; Z79.4 Long term (current) use of insulin; G89.11 Acute pain due to trauma
CPT/HCPCS: 36415; 36416; 36430; 71045; 72170; 76000; 80048; 80053; 81001; 82533; 82553; 83735; 83970; 84100; 84484; 85025; 85610; 85730; 86704; 86706; 86803; 86850; 86900; 86901; 87340; 90471; 90682; 90935; 93005; 93010; 93306; 93458; 93798; 93970; 96374; 96375; A4216; C1713; C1752; C1769; G0008; G0257; G0365; G0390; G8978-GP-CN; G8979-GP-CK; G8987-GO-CK; G8988-GO-CI; J0670; J0690; J1644; J1720; J1815; J2001; J2175; J2250; J2270; J2405; J2704; J2720; J3010; L8670; P9016; P9047; Q2036; Q4081; S0028